=== PATIENT | female | born 1985 | race Hispanic/Latino ===

== ENCOUNTER 2017-12-05 12:33 | Emergency (ER) | payer OTHER ==
[~2017-12-05] VITALS: Ht 162.6 cm; Wt 55.8 kg
--- OUTSIDE RECORDS SUMMARY | ~2017-12-05 | XMS | Clinical Summary ---
Demographics + + + | Address | [address] | [address] | | | [place] [address] | + + + | Home Phone | | + + + | Preferred Language | Unknown | + + + | Marital Status | Unknown | + + + | Religion Affiliation | Unknown | + + + | Race | Unknown | + + + | Ethnic Group | Unknown | + + + Author + + + | Author | Julissa Airtasker | + + + | Organization | [facility] | + + + | Address | Unknown | + + + | Phone | Unavailable | + + + Care Team Providers + +------+ + | Care Small Arms Artillery Repairer Name | Role | Phone | + [...] + + + + | Vaccine: | | | | | Dtap/Tdap/Td (1 - | 3 | | | | Tdap) | | | | + + + + + | Cervical Cancer | | | | | Screening (Pap) | 4 | | | + + + + + | Vaccine: Influenza | | | | | (#1) | 8 | | | + + + + [...] +------+-------+ + | MEDICAID | [place] | [id number] | | | [address] | | | N | | | | [place] | | | [place] | | | | [phone] | | | HAND MOLD MAKER | | | | | + +--------+ [...] Self | [birth year] | Home: | [address] | | | al/Fam | | 1985 | [phone] | [address] [place] | | | [place] | | | [phone] | [phone] | + +--------+ +--------+ + +"
--- OUTSIDE RECORDS SUMMARY | ~2017-12-05 | XMS | Clinical Summary ---
Demographics + + + | Address | [address] | [address] | | | [place] [address] | + + + | Home Phone | | + + + | Preferred Language | Unknown | + + + | Marital Status | Unknown | + + + | Voodoo Affiliation | Unknown | + + + | Race | Unknown | + + + | Ethnic Group | Unknown | + + + Author + + + | Author | Julissa NEXGRID | + + + | Organization | 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
[~2017-12-05 12:33] MED LIST: ASPIRIN81 MG PO; CENTRUM MULTIG80 MCG PO; HYDROCODON-ACE1 EA10 PO; MECLIZINE HCL25 MG PO; ONDANSETRON ODT8 MG PO; REMERON30 MG PO; ULTRAM50 MG PO; ZOFRAN ODT4 MG PO; ZOLOFT100 MG PO
[2017-12-05] MEDS ORDERED: CAMRESE LO TAB1 EACH PO (12:44)
[2017-12-05] MEDS ORDERED: TOPAMAX25 MG PO (12:44)
[2017-12-05] MEDS ORDERED: PREDNISONE20 MG PO (13:04)
[2017-12-05] MEDS ORDERED: VENTOLIN HFA18 GM INH (13:04)
== END 2017-12-05 13:34 | disposition home or self-care (01) ==
LOC: ED 12:33
DX: J45.901 Unspecified asthma with (acute) exacerbation (principal); Z88.0 Allergy status to penicillin; Z88.8 Allergy status to other drugs, medicaments and biological substances
CPT/HCPCS: 94640; 99284; J7512

== ENCOUNTER 2019-01-20 09:37 | Emergency (ER) | payer OTHER ==
[~2019-01-20] VITALS: Ht 162.6 cm; Wt 61.2 kg
--- OUTSIDE RECORDS SUMMARY | ~2019-01-20 | XMS | Clinical Summary ---
Demographics + + + | Address | [address] | | | [place] [address] | + + + | Home Phone | | + + + | Preferred Language | Unknown | + + + | Marital Status | Unknown | + + + | Catholic Affiliation | Unknown | + + + | Race | Unknown | + + + | Ethnic Group | Unknown | + + + Author + + + | Author | [facility] (Historical as of | | | 12-02-18) | + + + | Organization | [facility] (Historical as of | | | 12-02-18) | + + + | Address | Unknown | + + + | Phone | Unavailable | + + + Care Team Providers + +------+ + | Care Research Quality Assurance Analyst Name | Role | Phone | + [...] +------+-------+ + | MEDICAID | [place] | [id number] | | | [address] | | | N | | | | [place] | | | [place] | | | | [phone] | | | 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
--- OUTSIDE RECORDS SUMMARY | ~2019-01-20 | XMS | Clinical Summary ---
Demographics + + + | Address | [address] | [address] | | | [place] [address] | + + + | Home Phone | | + + + | Preferred Language | Unknown | + + + | Marital Status | Unknown | + + + | Amish Affiliation | Unknown | + + + | Race | Unknown | + + + | Ethnic Group | Unknown | + + + Author + + + | Author | [facility] (Historical as of | | | 12-02-18) | + + + | Organization | [facility] (Historical as of | | | 12-02-18) | + + + | Address | Unknown | + + + | Phone | Unavailable | + + + Care Team Providers + +------+ + | Care Architect Naval Name | Role | Phone | + [...] +------+-------+ + | MEDICAID | [place] | [id number] | | | [address] | | | N | | | | [place] | | | [place] | | | | [phone] | | | APPRENTICE ELECTRICIAN | | | | | + +--------+ [...] | [place] | | | [phone] | [phone] | + +--------+ +--------+ + +"
[~2019-01-20 09:37] MED LIST changes: +CAMRESE LO TAB1 EACH PO; +PREDNISONE20 MG PO; +TOPAMAX25 MG PO; +VENTOLIN HFA18 GM INH
[2019-01-20] MEDS ORDERED: GABAPENTIN300 MG PO (09:56)
[2019-01-20] MEDS ORDERED: CYMBALTA60 MG PO (09:57)
[2019-01-20] MEDS ORDERED: ULTRAM50 MG PO (12:40)
[2019-01-20] MEDS ORDERED: PROTONIX40 MG PO (12:40)
== END 2019-01-20 12:49 | disposition home or self-care (01) ==
LOC: ED 09:37
DX: R10.13 Epigastric pain (principal); Z88.0 Allergy status to penicillin; Z88.8 Allergy status to other drugs, medicaments and biological substances; Z79.899 Other long term (current) drug therapy
CPT/HCPCS: 80053; 85025; 96374; 96375; 99284-25; C9113; J1885; J2550

== ENCOUNTER 2019-01-25 12:07 | Emergency (ER) | payer OTHER ==
[~2019-01-25] VITALS: Ht 162.6 cm; Wt 61.2 kg
--- OUTSIDE RECORDS SUMMARY | ~2019-01-25 | XMS | Clinical Summary ---
Demographics + + + | Address | [address] | [address] | | | [place] [address] | + + + | Home Phone | | + + + | Preferred Language | Unknown | + + + | Marital Status | Unknown | + + + | Scientologist Affiliation | Unknown | + + + | Race | Unknown | + + + | Ethnic Group | Unknown | + + + Author + + + | Author | [email or web address] (Historical as of | | | 12-02-18) | + + + | Organization | [email or web address] (Historical as of | | | 12-02-18) | + + + | Address | Unknown | + + + | Phone | Unavailable | + + + Care Team Providers + +------+ + | Care Rod Finisher Name | Role | Phone | + +------+ + PP | Unavailable | + +------+ + Allergies Not on File Current Medications Not on file Active Problems Not on file Social History + +-------+ +--------+------+ | Tobacco Use | Types | Packs/Day | Years | Date | | | | | Used | | + +-------+ +--------+------+ | Never Assessed | | | | | + +-------+ +--------+------+ + + + | Sex Assigned at | Date Recorded | | | | + + + | Not on file | | + + + Plan of Treatment + + + + + | Health Maintenance | Due Date | Last Done | Comments | + + + + + | Vaccine: | 18/200 | | | | Dtap/Tdap/Td (1 - | 3 | | | | Tdap) | | | | + + + + + | Cervical Cancer | | | | | Screening (Pap) | 4 | | | + + + + + | Vaccine: Influenza | | | | | (#1) | 9 | | | + + + + + Results Not on filefrom Last 3 Months Insurance + +--------+ +------+-------+ + | Payer | Benefi | Subscriber | Type | Phone | Address | | | t Plan | ID | | | | | | / | | | | | | | Group | | | | | + +--------+ +------+-------+ + | MEDICAID | [place] | [id number] | | | [address] | | | N | | | | [place] | | | [place] | | | | [phone] | | | FBI INVESTIGATOR | | | | | + +--------+ +------+-------+ + + +--------+ +--------+ + + | Guarantor Name | Accoun | Relation to | Date | Phone | Billing Address | | | t Type | Patient | of | | | | | | | | | | + +--------+ +--------+ + + | GET EUGENE | Person | Self | [birth year] | Home: | [address] | | | al/Fam | | 1986 | [phone] | [address] [place] | | | [place] | | | [phone] | [phone] | + +--------+ +--------+ + +"
--- OUTSIDE RECORDS SUMMARY | ~2019-01-25 | XMS | Clinical Summary ---
Demographics + + + | Address | [address] | [address] | | | [place] [address] | + + + | Home Phone | | + + + | Preferred Language | Unknown | + + + | Marital Status | Unknown | + + + | Oriental Orthodox Affiliation | Unknown | + + + | Race | Unknown | + + + | Ethnic Group | Unknown | + + + Author + + + | Author | [facility] (Historical as of | | | 12-02-18) | + + + | Organization | [facility] (Historical as of | | | 12-02-18) | + + + | Address | Unknown | + + + | Phone | Unavailable | + + + Care Team Providers + +------+ + | Care Hogshead Stripper Name | Role | Phone | + [...] +------+-------+ + | MEDICAID | [place] | [id number] | | | [address] | | | N | | | | [place] | | | [place] | | | | [phone] | | | LEAF COVERER | | | | | + +--------+ [...] | [place] | | | [phone] | [phone] | + +--------+ +--------+ + +"
[~2019-01-25 12:07] MED LIST changes: +CYMBALTA60 MG PO; +GABAPENTIN300 MG PO; +PROTONIX40 MG PO
--- OUTSIDE RECORDS SUMMARY | 2019-01-25 12:10 | XMS ---
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 Sonya VISIT COUNT (12 MO.) 2 [facility] TOTAL 2 NOTE: Visits indicate total known visits. ED/UCC VISIT TRACKING (12 MO.) 01/25/2019 12:08 [facility] [place] TYPE: Emergency COMPLAINT: - ABD PAIN 01/20/2019 09:37 [facility] [place] TYPE: Emergency COMPLAINT: - ABD PAIN DIAGNOSES: - Epigastric pain - Allergy status to other drugs, medicaments and biological substances status - Other exterminator termite (current) drug therapy - Allergy status to penicillin INPATIENT VISIT TRACKING (12 MO.) No inpatient visits to display in this time frame [email or web address]
[2019-01-25] MEDS ORDERED: NORCO 5-325 TA1 EACH PO (18:32)
[2019-01-25] MEDS ORDERED: ONDANSETRON ODT8 MG PO (18:32)
== END 2019-01-25 18:48 | disposition home or self-care (01) ==
LOC: ED 12:07
DX: K29.00 Acute gastritis without bleeding (principal); Z88.0 Allergy status to penicillin; Z88.8 Allergy status to other drugs, medicaments and biological substances; Z79.899 Other long term (current) drug therapy; Z79.891 Long term (current) use of opiate analgesic
CPT/HCPCS: 74177; 80053; 81001; 83690; 83735; 84703; 85025; 99284-25; C9113; J1170; J2405

== ENCOUNTER 2019-03-22 08:26 | Day surgery (SDC) | payer OTHER ==
[~2019-03-22] VITALS: Ht 162.6 cm; Wt 61.2 kg
[~2019-03-22 08:26] MED LIST changes: +NORCO 5-325 TA1 EACH PO
--- NOTE | 2019-03-22 08:55 | NUR ---
C/O ABDOMINAL PAIN AND HAS CHRONIC PAIN
--- NOTE | 2019-03-22 09:38 | NUR ---
03/22/19 0938 Sheets,Alva 0977 PT ARRIVED TO PACU AND WAKES TO VERBAL STIMULI AND IS REORIENTED TO PACU. PT FALLS BACK TO SLEEP EASILY. RESP EVEN AND UNLABORED. VSS.
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
--- NOTE | 2019-03-26 13:01 | PATH ---
[facility] [address] [place], [place] [address] Signed SPECIMEN(S): A STOMACH NOS SPECIMEN(S): B STOMACH NOS SPECIMEN(S): C STOMACH NOS SPECIMEN(S): D GE JUNCTION SPECIMEN SOURCE: A. STOMACH NOS B. STOMACH NOS C. STOMACH NOS D. GE JUNCTION CLINICAL HISTORY: Epigastric pain. Rule out: 1. Demario limb. 2. Small gastric anastomosis. 3. Gastric pouch. MICROSCOPIC DESCRIPTION: Histologic sections of all submitted blocks are examined by light microscopy. These findings, together with the gross examination, support the pathologic diagnosis. FINAL PATHOLOGIC DIAGNOSIS: A. Demario limb, biopsy: - --Small intestinal mucosa with mild active inflammation and reactive changes. - Negative for villous blunting and granulomas. B. Small gastric bowel anastomosis, biopsy: - Fragments of gastric and duodenal mucosa with mild chemical/reactive gastropathy and reactive changes. - Negative for Helicobacter pylori organisms on immunohistochemical stain. C. Gastric pouch, biopsy: - Benign gastric mucosa. - Negative for intestinal metaplasia. - Negative for Helicobacter pylori organisms on routine stain. D. GE junction, biopsy: - Fragments of benign squamous mucosa. - Negative for intestinal metaplasia and dysplasia. DDF:smn:C2NR GROSS DESCRIPTION: Four specimens are received in four containers, labeled "LD." A. The specimen, labeled "LD, #1," is received in formalin and consists of two lester soft tissue fragments that measure 0.3-0.6 cm in greatest dimension. The PATIENT NAME: GET EUGENE PATHOLOGY DATE OF : 81 REPORT #: [id number] PHYSICIAN: RAVI BRAVO PCP: MARK MCNAIR PAC REPORT IS CONFIDENTIAL AND NOT TO BE RELEASED WITHOUT AUTHORIZATION [facility] [address] [place], [place] [address] Signed specimen is entirely submitted in cassette (A1). B. The specimen, labeled "LD, #2 small bowel," is received in formalin and consists of one lester soft tissue fragment that measures 0.4 cm in greatest dimension. The specimen is entirely submitted in cassette (B1). C. The specimen, labeled "LD, #3," is received in formalin and consists of one lester soft tissue fragment that measures 0.4 cm in greatest dimension. The specimen is entirely submitted in cassette (C1). D. The specimen, labeled "LD, #4," is received in formalin and consists of two lester soft tissue fragments that measure 0.2 and 0.8 cm in greatest dimension. The specimen is entirely submitted in cassette (D1). FB (under the direct supervision of a pathologist) The Gross Description was prepared using a voice recognition system. The report was reviewed for accuracy; however, sound-alike word errors, addition and/or deletions may occur. If there is any question about this report, please contact Client Services. PERFORMING LABORATORY: The technical component was performed by [facility], [address] [place] [address] (Facility Maintenance Helper: Sara Kerr MD; CLIA# [id number]). [facility], [address] [place] [address] (CLIA# [id number]). Diagnostician: Shravan Benson DO Pathologist Electronically Signed 03/26/2019 Copies: ~ PATIENT NAME: GET EUGENE DIMITRI PATHOLOGY DATE OF : 81 REPORT #: [id number] PHYSICIAN: RAVI BRAVO PCP: MARK MCNAIR PAC REPORT IS CONFIDENTIAL AND NOT TO BE RELEASED WITHOUT AUTHORIZATION
== END 2019-03-22 10:32 | disposition home or self-care (01) ==
LOC: DS 08:26
PROVIDERS: Colon & Rectal Surgery
PROC: 0DB48ZX Excision of Esophagogastric Junction, Via Natural or Artificial Opening Endoscopic, Diagnostic (ICD-10-PCS; 2019-03-22)
PROC: 0DB88ZX Excision of Small Intestine, Via Natural or Artificial Opening Endoscopic, Diagnostic (ICD-10-PCS; 2019-03-22)
PROC: 0DB68ZX Excision of Stomach, Via Natural or Artificial Opening Endoscopic, Diagnostic (ICD-10-PCS; principal; 2019-03-22 09:45)
DX: K29.70 Gastritis, unspecified, without bleeding (principal); K52.9 Noninfective gastroenteritis and colitis, unspecified; D64.9 Anemia, unspecified; K31.89 Other diseases of stomach and duodenum; F41.9 Anxiety disorder, unspecified; F32.9 Major depressive disorder, single episode, unspecified; M79.7 Fibromyalgia; E55.9 Vitamin D deficiency, unspecified; E78.6 Lipoprotein deficiency; Z98.84 Bariatric surgery status; Z79.899 Other long term (current) drug therapy; Z88.8 Allergy status to other drugs, medicaments and biological substances; Z88.0 Allergy status to penicillin
CPT/HCPCS: 86677; 99153; G0500; J2250; J3010; J7121

== ENCOUNTER 2019-05-17 17:16 | Emergency (ER) | payer OTHER ==
[~2019-05-17] VITALS: Ht 162.6 cm; Wt 61.2 kg
--- OUTSIDE RECORDS SUMMARY | 2019-05-17 17:20 | XMS ---
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 EKelly VISIT COUNT (12 MO.) 3 [facility] [place] TOTAL 3 NOTE: Visits indicate total known visits. ED/UCC VISIT TRACKING (12 MO.) 05/17/2019 17:17 [facility] [place] TYPE: Emergency COMPLAINT: - UPPER ABD PAIN, BACK/NECK PAIN 01/25/2019 12:08 [facility] [place] TYPE: Emergency COMPLAINT: - ABD PAIN DIAGNOSES: - Other nursing home (current) drug therapy - Allergy status to penicillin - Allergy status to oth drug/meds/biol subst status - Upper abdominal pain, unspecified - vermin exterminator (current) use of opiate analgesic - Acute gastritis without bleeding 01/20/2019 09:37 [facility] [place] TYPE: Emergency COMPLAINT: - ABD PAIN DIAGNOSES: - Epigastric pain - Allergy status to oth drug/meds/biol subst status - Other 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
[2019-05-17] MEDS ORDERED: CYANOCOBAL1000 MCG/M IM (18:08)
[2019-05-17] MEDS ORDERED: ASHLYNA 0.15-01 EACH PO (18:08)
[2019-05-17] MEDS ORDERED: IRON325 M1 PO (18:09)
[2019-05-17] MEDS ORDERED: OMEPRAZOLE20 MG PO (23:22)
== END 2019-05-17 23:55 | disposition home or self-care (01) ==
LOC: ED 17:16
DX: R10.11 Right upper quadrant pain (principal); Z88.0 Allergy status to penicillin; Z88.8 Allergy status to other drugs, medicaments and biological substances; Z79.899 Other long term (current) drug therapy
CPT/HCPCS: 74177; 80053; 81001; 83690; 84703; 85025; 96361; 99284-25; C9113; J1170; J2405; J2550; J7030; Q9967

== ENCOUNTER 2019-11-15 18:50 | Emergency (ER) | payer OTHER ==
[~2019-11-15] VITALS: Ht 162.6 cm; Wt 65.8 kg
--- OUTSIDE RECORDS SUMMARY | ~2019-11-15 | XMS | Encounter Summary ---
Demographics + + + | Address | [address] | | | [address] | | | [place] [address] | + + + | Home Phone | | + + + | Preferred Language | Unknown | + + + | Marital Status | Unknown | + + + | Hoahaoism Affiliation | Unknown | + + + | Race | Unknown | + + + | Ethnic Group | Unknown | + + + Author + + + | Author | [facility] | | | and [place] | + + + | Organization | [facility] | | | [...] Team Providers + +------+ + | Care Registered Nurses Name | Role | Phone | + +------+ + | Niocle Shin | PCP | | | PA [...] Lab Results | | 2020 | | [facility] | | | | | | [facility] [address] | | | | | | [address] [place], | | | | | | [place] [address] | | | | | | [phone] | | | +--------+ + + + [...] Description | +--------+---------+ + + + | 11/21/ | Office | Neurology | Radha Arcos | | 2019 | Visit | | MD Randall [address] | | | | | | [place] | | | | | | [place] [address] | | | | | | [phone] | | | | | | | | +--------+---------+ + + + documented as of this encounter Visit Diagnoses Not on filedocumented in this encounter"
--- OUTSIDE RECORDS SUMMARY | ~2019-11-15 | XMS | Clinical Summary ---
Demographics + + + | Address | [address] | | [address] | | | [place] [address] | + + + | Home Phone | | + + + | Preferred Language | Unknown | + + + | Marital Status | Unknown | + + + | Restoration Affiliation | Unknown | + + + | Race | Unknown | + + + | Ethnic Group | Unknown | + + + Author + + + | Author | [facility] | | | and [place] | + + + | Organization | [facility] | | | [...] Team Providers + +------+ + | Care Medical Device Sales Representative Name | Role | Phone | + +------+ + | Nicole Shin | PCP | | | PA | | | + +------+ + Allergies + + + + + + | Active Allergy | Reactions | Severity | Noted | Comments | | | | | Date | | + + + + + + | Venlafaxine | Anaphylaxis | High | 05/11/19 | | | | | | 20 | | + + + + + + | Penicillins | Anaphylaxis | High | 05/11/19 | | | | | | 20 | | + + + + + + Medications + + + +---------+------+------+-------+ | Medication | Sig | Dispensed | Refills | Star | End | Statu | | | | | | t | Date | s | | | | | | Date | | | + + + +---------+------+------+-------+ | DULoxetine | Take 60 mg by mouth | | 0 | | | Activ | | (CYMBALTA) [address] | Daily. | | | | | e | | capsule | | | | | | | + + + +---------+------+------+-------+ | cholecalciferol | Take by mouth Once | | 0 | | | Activ | | (VITAMIN D-3) 1.25 | a week. | | | | | e | | mg (50,000 units) | | | | | | | | capsule | | | | | | | + + + +---------+------+------+-------+ | meclizine | Take 12.5 mg by | | 0 | | | Activ | | (ANTIVERT) 12.5 mg | mouth 3 times daily | | | | | e | | tablet | as needed. | | | | | | + + + +---------+------+------+-------+ | ondansetron | Take 8 mg by mouth | | 0 | | | Activ | | (ZOFRAN ODT) 8 mg | every 8 hours as | | | | | e | | disintegrating | needed for Nausea. | | | | | | | tablet | | | | | | | + + + +---------+------+------+-------+ | pantoprazole | Take 40 mg by mouth | | 0 | | | Activ | | (PROTONIX) 40 mg | every morning | | | | | e | | tablet | (before breakfast). | | | | | | + + + +---------+------+------+-------+ | sucralfate | Take 1 g by mouth 4 | | 0 | | | Activ | | (CARAFATE) 1 g | times daily. | | | | | e | | tablet | | | | | | | + + + +---------+------+------+-------+ | topiramate | Take 100 mg by mouth | | 0 | | | Activ | | (TOPAMAX) 100 mg | 2 times daily. | | | | | e | | tablet | | | | | | | + + + +---------+------+------+-------+ | Levonorgest-Eth | Take by mouth | | 0 | | | Activ | | Estrad 91-Day | Daily. | | | | | e | | (MICHAEL PO) | | | | | | | + + + +---------+------+------+-------+ | pregabalin | TAKE 1 CAPSULE BY | | 0 | 05/0 | | Activ | | (LYRICA) 150 MG | MOUTH TWICE DAILY | | | 1/20 | | e | | capsule | | | | 20 | | | + + + +---------+------+------+-------+ | PARoxetine (PAXIL) | TAKE 1 TABLET BY | | 0 | 05/0 | | Activ | | 10 mg tablet | MOUTH ONCE DAILY | | | 1/20 | | e | | | | | | 20 | | | + + + +---------+------+------+-------+ | mirtazapine | TAKE 1 TABLET BY | | 0 | 05/0 | | Activ | | (REMERON) 15 MG | MOUTH EVERY DAY AT | | | 1/20 | | e | | tablet | BEDTIME NEEDED | | | 20 | | | | | FOR SLEEP | | | | | | + + + +---------+------+------+-------+ Active Problems + + + | Problem | Noted Date | + + + | Peripheral polyneuropathy | 09/07/2019 | + + + | Muscle weakness | 05/11/2019 | + + + | Fibromyalgia | 05/11/2019 | + + + Encounters +--------+ + + + + | Date | Type | Specialty | Care Team | Description | +--------+ + + + + | 09/13/ | Telephone | Neurology | Niki Souza RN | Lab Results | 2019 | | | | | +--------+ + + + + | 09/10/ | Telephone | Neurology | Radha Arcos | Lab Results | 2019 | | | MD [place] | | +--------+ + + + + | 09/06/ | Procedure | Neurology | Radha Arcos | Muscle weakness; | | 2019 | visit | | MD [place] | Peripheral | | | | | | polyneuropathy | +--------+ + + + + from Last 3 Months Family History + + +------+ + | Medical History | Relation | Name | Comments | + + +------+ + | Cancer | Paternal | | | | | Aunt | | | + + +------+ + + +------+--------+ + | Relation | Name | Status | Comments | + +------+--------+ + | Father | | Alive | | + +------+--------+ + | Mother | | Alive | | + +------+--------+ + | Paternal Aunt | | | | + +------+--------+ + Social History + +-------+ +--------+------+ | [...] on file | | + + + Last Filed Vital Signs + + + [...] | | + + + + + Plan of Treatment +--------+---------+ + + + | Date | Type | Specialty | Care Team | Description | +--------+---------+ + + + | 11/21/ | Office | Neurology | Radha Arcos | | | 2020 | Visit | | MD [place] [address] | | | | | | [place] | | | | | | [place] [address] | | | | | | [phone] | | | | | | | | +--------+---------+ + + + + + + + + | Health Maintenance | Due Date | Last | Comments | | | | Done | | + + + + + | Hepatitis C | | | | | Screening | 4 | | | + + + + + | Med Mgmt: Cr | | | | | | 4 | | | + + + + + | Med Mgmt: Vit D | | | | | | 4 | | | + + + + + | Med Mgmt: eGFR | | | | | | 4 | | | + + + + + | Medication | | | | | Management | 4 | | | + + + + + | Cervical Cancer | | | | | Screening (Pap) | 4 | | | + + + + + | Vaccine: Influenza | | | | | (#1) | 0 | | | + + + + + | Vaccine: | | 09/16/19 | | | Dtap/Tdap/Td (2 - | 7 | 17 | | | Td) | | | | + + + + + Procedures + +--------+ + + + | Procedure Name | Priori | Date/Time | Associated Diagnosis | Comments | | | ty | | | | + +--------+ + + + | PROTEIN | Routin | 09/07/2019 | Peripheral | Results for this | | ELECTROPHORESIS, | e | 2:45 PM | polyneuropathy | procedure are in the | | SERUM | | PDT | | results section. | + +--------+ + + + | IMMUNOGLOBULIN, | Routin | 09/07/2019 | Peripheral | Results for this | | PANEL, IGG AND IGM | e | 2:45 PM | polyneuropathy | procedure are in the | | AND IGA | | PDT | | results section. | + +--------+ + + + | VITAMIN B-12 | Routin | 09/07/2019 | Peripheral | Results for this | | | e | 2:45 PM | polyneuropathy | procedure are in the | | | | PDT | | results section. | + +--------+ + + + | FOLATE | Routin | 09/07/2019 | Peripheral | Results for this | | | e | 2:45 PM | polyneuropathy | procedure are in the | | [...] section. | + +--------+ + + + from Last 3 Months Results Vitamin B-12 (09/07/2019 2:45 PM PDT) + +-------+ + [...] + + | [facility] | [address] | [place] | [phone] | | HOSPITAL [facility]ORY | | [address] | | + + + + + [...] | | | | | | - [facility] | | | | | | [place] | | + + + + + + | Immunoglobu | 1060 | 600 - 1640 | REFERENCE | | | beatrice IgG | | mg/dL | [facility] | | | | | | [facility] | | | | | | - [place] | | | | | | [place] | | + + + + + + | Immunoglobu | 167Comment: @ Test | 50 - 300 mg/dL | REFERENCE | | | beatrice IgM | Performed By: [facility] | | [facility] | | | | [facility] | | [place] | | | | Marlo Catherine | | - [place] | | | | Salvatore Ruiz, Ph.D., | | [place] | | | | Business Project Analyst | | | | | | [address] [facility] | | | | | | [place] [address] | | | | | | [place] #[id number] | | | | + + + + + + + + | Specimen | + + | Blood | + + + + + + + | Performing | Address | City/State/Zipcode | Phone Number | | Organization | | | | + + + + + | REFERENCE LAB | [address] | [place], [place] | | | [facility] - | | [address] | | | [place] | | | | + + + + + Protein Electrophoresis, Serum (09/07/2019 2:45 PM PDT) [...] | | | | | | - [place] | | | | | | [place] | | + + + + + + | ELP Albumin | 3.9Comment: | 3.8 - 4.8 g/dL | REFERENCE | | | | | | [facility] | | | | | | [facility] | | | | | | - [place] | | | | | | [place] | | + + + + + + | Alpha-1-Tamy | 0.3Comment: | 0.2 - 0.3 g/dL | REFERENCE | | | bulin | | | [facility] | | | | | | [facility] | | | | | | - [place] | | | | | | [place] | | + + + + + + | Alpha-2-Tamy | 0.9Comment: | 0.5 - 0.9 g/dL | REFERENCE | | | bulin | | | [facility] | | | | | | [facility] | | | | | | - [place] | | | | | | [place] | | + + + + + + | Beta 1 | 0.5Comment: | 0.4 - 0.6 g/dL | REFERENCE | | | Globulin | | | [facility] | | | | | | [facility] | | | | | | - [place] | | | | | | [place] | | + + + + + + | BETA 2 | 0.4Comment: | 0.2 - 0.5 g/dL | REFERENCE | | | GLOBULIN | | | [facility] | | | | | | [facility] | | | | | | - [place] | | | | | | [place] | | + + + + + + | Gamma | 1.0Comment: | 0.8 - 1.7 g/dL | REFERENCE | | | Globulin | | | [facility] | | | | | | [facility] | | | | | | - [place] | | | | | | [place] | | + + + + + + | SPEP | Normal Electrophoretic | | REFERENCE | | | Interpretat | Pattern.Comment: | | [facility] | | | ion | Test(s) performed at: | | DIAGNOSTICS | | | | [facility] | | - [place] | | | | [facility] | | [facility] | | | | Becky Redding, | | | | | | MKelly, Ph.D., [place], | | | | | | Business Project Analyst | | | | | | [address] [facility] | | | | | | [place] | | | | | | [place] [address] | | | | | | [place] #[id number] | | | | + + + + + + + + | Specimen | + + | Blood | + + + + + + + | Performing | Address | City/State/Zipcode | Phone Number | | Organization | | | | + + + + + | REFERENCE LAB | [address] | [place], [place] | | | [facility] - | | [address] | | | [place] [place] | | | | + + [...] + + | [facility] | [address] | [place] | [phone] | | HOSPITAL [facility]ORY | | [address] | | + + + + + EMG-LIANET/IRENA (09/07/2019 2:00 PM PDT) + + + | Narrative | Performed At | + + + | Radha Pereira | | | MD Josselyn 09/07/2019 2:28 PMPlease see scanned report. | | | | | + + + + + | Procedure Note | + + | Radha Arcos MD - 09/07/2019 2:00 PM PDT Please see scanned report. | + + from Last 3 Months Insurance + +--------+ +--------+ +---------+--------+ | Payer | Benefi | Subscriber | Effect | Phone | Address | Type | | | t Plan | ID | beverley | | | | | | / | | Dates | | | | | | Group | | | | | | + +--------+ +--------+ +---------+--------+ | [employer] | [place] | [id number] | 04/18/19 | [phone] | | PPO | | ADMIN | BCBS | 2 | 19-Pre | 3 | | | | | PPO | | sent | | | | + +--------+ +--------+ +---------+--------+ | [employer] | [place] | [id number] | 04/18/19 | [phone] | | PPO | | ADMIN | BCBS | 2 | 19-Pre | 3 | | | | | PPO | | sent | | | | + +--------+ +--------+ +---------+--------+ | [employer] | MODA | [id number] | | [phone] | | Medica | | MEDICAID HMO | HEALTH | | 019-Pr | 1 | | id | | | MDCD | | esent | | | | | | [place] | | | | | | + +--------+ +--------+ +---------+--------+ | [employer] | MODA | [id number] | | [phone] | | Medica | | MEDICAID HMO | HEALTH | | 020-Pr | 1 | | id | | | MDCD | | esent | | | | | | [place] | | | | | | + +--------+ +--------+ +---------+--------+ + +--------+ +--------+ + + | Guarantor Name | Accoun | Relation to | Date | Phone | Billing Address | | | t Type | Patient | of | | | | | | | | | | + +--------+ +--------+ + + | Annie Remy | Person | Self [birth year] | [address] | | | [address]/Asad | | 1986 | [phone] | [address] [place] | | | [place] | | | 4 (Home) | [address] | + +--------+ +--------+ + + | Annie Remy | Person | Self | [birth year] | [address] | | | al/Fam | | 1986 | [phone] | [address] [place] | | | [place] | | | 4 (Home) | [address] | + +--------+ +--------+ + + Advance Directives + + + + + | Type | Date Recorded | Patient | Explanation | | | | Material Liaison | | + + + + + | Power of | | | | | Legal Recovery Specialist | | | | + + + + + | Advance | | | | | Directive | | | | + + + + +
--- OUTSIDE RECORDS SUMMARY | ~2019-11-15 | XMS | Encounter Summary ---
Demographics + + + | Address | [address] | | [address] | | | [place] [address] | + + + | Home Phone | | + + + | Preferred Language | Unknown | + + + | Marital Status | Unknown | + + + | Synagogue Affiliation | Unknown | + + + | Race | Unknown | + + + | Ethnic Group | Unknown | + + + Author + + + | Author | [facility] | | | and [place] | + + + | Organization | [facility] | | [...] Team Providers + +------+ + | Care Molding Process Technician Name | Role | Phone | + +------+ + | Nicole Shin | PCP | | | PA | | | + +------+ + Reason for Visit + +--------+ + | Reason | Onset | Comments | | | Date | | + +--------+ + | Lab Results | 09/10/ | | | | 2019 | | + +--------+ + Encounter Details +--------+ + + + + | Date | Type | Department | Care Team | Description | +--------+ + + + + | 09/10/ | Telephone | [place] [facility] | Radha Arcos | Lab Results | | 2020 | | [facility] | MD Randall [address] | | | | | CLINIC [address] | [place] | | | | | [address], | [place] [address] | | | | | [place] [address] | [phone] | | | | | [phone] | | | +--------+ + + + [...] Telephone Encounter - Niki Souza RN - 09/11/2019 8:06 AM PDTNotified, verbalized unde rstanding. Order for Cryoglobulin faxed to [facility] in [place]. elephone Encounter - Niki Souza RN - 0 09/11/2019 8:06 AM PDT----- Message from Radha Arcos MD sent at 09/09/2019 9:10 AM P DT ----- Please lt pt know her B12 and Folate are normal. Other labs are pending.Electronically sig bert by Niki Souza RN at 09/11/2019 8:06 AM PDTTelephone Encounter - Vi Cedeno - 09/11/2019 7:47 AM PDTPatient would like her lab orders faxed to [facility] in [place]. documented in this enco unter Plan of Treatment +--------+---------+ + + + | Date | Type | Specialty | Care Team | Description | +--------+---------+ + + + | 11/21/ | Office | Neurology | Radha Arcos | | 2019 | Visit | | MD Randall [address] | | | | | | [address], [place] | | | | | | [place] [address] | | | | | | [phone] | | | | | | | | +--------+---------+ + + + documented as of this encounter Visit Diagnoses Not on filedocumented in this encounter"
--- OUTSIDE RECORDS SUMMARY | ~2019-11-15 | XMS | Encounter Summary ---
Demographics + + + | Address | [address] | | [address] | | | [place] [address] | + + + | Home Phone | | + + + | Preferred Language | Unknown | + + + | Marital Status | Unknown | + + + | Advent Affiliation | Unknown | + + + | Race | Unknown | + + + | Ethnic Group | Unknown | + + + Author + + + | Author | [facility] | | | and [place] | + + + | Organization | [facility] | | [...] Team Providers + +------+ + | Care Advanced Manufacturing Technician Name | Role | Phone | + +------+ + | Nicole Shin | PCP | | | PA | | | + +------+ + Reason for Visit + +--------+ + | Reason | Onset | Comments | | | Date | | + +--------+ + | Lab Results | 09/13/ | | | | 2019 | | + +--------+ + Encounter Details +--------+ + + + + | Date | Type | Department | Care Team | Description | +--------+ + + + + | 09/13/ | Telephone | [facility] | Niki Souza RN | Lab Results | | 2020 | | [facility] | | | | | | CLINIC [address] | | | | | | [address] [place], | | | | | | [place] [address] | | | | | | [phone] | | | +--------+ + + + [...] Telephone Encounter - Niki Souza RN - 09/14/2019 8:54 AM PDTPatient notified, ju[facility] elep thom Encounter - Niki Souza RN - 09/14/2019 8:54 AM PDT----- Message from Radha Arcos MD sent at 09/14/2019 6:39 AM PDT ----- Please let patient know that the rest of her labs are normal. documented in this encounter Plan of [...] | | | | | [place] [address] | | | | | | [phone] | | | | | | | | +--------+---------+ + + + documented as of this encounter Visit Diagnoses Not on filedocumented in this encounter"
--- OUTSIDE RECORDS SUMMARY | ~2019-11-15 | XMS | Encounter Summary ---
Demographics + + + | Address | [address] | | [address] | | | [place] [address] | + + + | Home Phone | | + + + | Preferred Language | Unknown | + + + | Marital Status | Unknown | + + + | Orthodox Affiliation | Unknown | + + + | Race | Unknown | + + + | Ethnic Group | Unknown | + + + Author + + + | Author | [facility] | | | and [place] | + + + | Organization | [facility] | | [...] Team Providers + +------+ + | Care Shearing Shed Worker Name | Role | Phone | + [...] [address] | | | | | | [address] | [place], | | | | | | [address] | [place] | | | | | | [place], | [facility] [place] | | | | | | [place] | [address] Phone: | | | | | | [address] | [phone] | | | | | | Phone: | Fax: | | | | | | [phone] | [phone] | | | | | | Fax: | | | | | | | [phone] | | +--------+--------+ + + + + [...] | DR [address], | [place] [address] | | | | | [place] [address] | [phone] | | | | | [phone] | | | +--------+---------+ + + + [...] have the followin g tests/procedures ordered. At [facility] Electromyography (EMG) study with Dr. Arcos Blood work at [facility] *Any questions, please call Dr. Arcos's office at Patient advised of their right to have diagnostic testing, health care treatment, and/or se rvices at a facility other than [facility]. Managing Fibromyalgia SMALL: BIG: Fibromyalgia is a [...] Arthritis Foundation [email or web address].org National Fibromyalgia Association www.fmaware.org [place] Fibromyalgia Syndrome Association [email or web address].org Date Last Reviewed: 09/16/201719996519-[address] [employer] [place] [address]. All righ ts reserved. This information is not intended as a substitute for professional medical care. Always follow your healthcare professional's instructions. documented in this encounter Progress Notes Radha Arcos MD - 05/11/2019 11:00 AM PST Patient: Annie Rem[place] Medical Record: [id number] Date of Services: 05/11/2019 Referring Doctor: ALVINA [...] file Gets together: Not on file Attends mosque service: Not on file Active member of [...] CEREBELLAR EXAMINATION: There is no dysmetria on ladoqp-ck-msxi test. IMPRESSION: 1. Elevated muscle enzymes 2. [...] this 45 minute visit was spent on hlor-ci-waiw with the patient, reviewing the possible etiology [...] | | | | | [place] [address] | | | | | | [phone] | | | | | | | [...] + + | [facility] | [address] | [place] | [phone] | | HOSPITAL LAB[facility]ORY | | [address] | | + + + + + [...] + + | [facility] | [address] | [place] | [phone] | | HOSPITAL LAB[facility]ATORY | | [address] | | + + + + + [...] | | Salvatore Ruiz, Ph.D., | | [place] | | | | Fur Trimming Machine Operator | | | | | | [address] [facility] | | | | | | [place] [address] | | | | | | [place] #[id number] | | | | + + + + + + + + | Specimen | + + | Blood | + + + + + + + | Performing | Address | City/State/Zipcode | Phone Number | | Organization | | | | + + + + + | REFERENCE LAB | [address] [facility] | [place], [place] | | | [facility] - | | [address] | | | [place] | | [...] + + | [facility] | [address] | [place], [place] | [phone] | | HOSPITAL LAB[facility]ORY | | [address] | | + + + + + [...] + + | [facility] | [address] | [place] | [phone] | | HOSPITAL LAB[facility]ORY | | [address] | | + + + + + documented in this encounter Visit Diagnoses + + | Diagnosis | + + | Muscle weakness Muscle weakness (generalized) | + + | Fibromyalgia Mylagia and myositis, unspecified | + + documented in this encounter
--- OUTSIDE RECORDS SUMMARY | ~2019-11-15 | XMS | Encounter Summary ---
Demographics + + + | Address | [address] | | | [address] | | | [place] [address] | + + + | Home Phone | | + + + | Preferred Language | Unknown | + + + | Marital Status | Unknown | + + + | Yazidi Affiliation | Unknown | + + + [...] | + + +---------+ + | [place] | ECON | Unknown | | + + +---------+ + Care Team Providers + +------+ + | Care Ultrasonic Cleaner Name | Role | Phone | + [...] | [address], | [place] [address] | | | | | [place] [address] | [phone] | | | | | [phone] | | | +--------+ + + + [...] | | | | | [place] [address] | | | | | | [phone] | | | | | | | [...] [place], | | | | | | Financial Wellness Coach | | | | | | [address] [facility] | | | | | | [address] [address] | | | | | | [place] [address] | | | | | | [place] #[id number] | | | | + + + + + + + + | Specimen | + + | Blood | + + + + + + + | Performing | Address | City/State/Zipcode | Phone Number | | Organization | | | | + + + + + | REFERENCE LAB | [address] [facility] | [place], [place] | | | [facility] - | | [address] | | | [facility] | | [...] | | [place] | | | | Financial Wellness Coach | | | | | | [address] [facility] [facility] | | | | | | [place] [address] | | | | | | [place] #[id number] | | | | + + + + + + + + | Specimen | + + | Blood | + + + + + + + | Performing | Address | City/State/Zipcode | Phone Number | | Organization | | | | + + + + + | REFERENCE LAB | [address] [facility] | [place], [place] | | | [facility] - | | [address] | | | [facility] [place] | | [...] + + | [facility] | [address] | [place] | [phone] | | HOSPITAL LAB[facility]ATORY | | [address] | | + + + + + [...] + + | [facility] | [address] | [place] | [phone] | | HOSPITAL LAB[facility]ORY | | [address] | | + + + + + [...]
--- OUTSIDE RECORDS SUMMARY | ~2019-11-15 | XMS | Encounter Summary ---
Demographics + + + | Address | [address] | | [address] | | | [place] [address] | + + + | Home Phone | | + + + | Preferred Language | Unknown | + + + | Marital Status | Unknown | + + + | Jehovah'S Witness Affiliation | Unknown | + + + [...] Team Providers + +------+ + | Care Generator Worker Name | Role | Phone | [...] | [address], | [place] [address] | | | | | [place] [address] | [phone] | | | | | [phone] | | | +--------+ + + + [...] 07/12/2019 2:08 PM PDTRecieved fax request from: [facility] Request[facility] chart notes on pt. I faxed the notes from the consult in April. Pt was referred by them I will send the request to the medical records dept in [facility] for further notes documented in thi s [...] | | | | | [place] [address] | | | | | | [phone] | | | | | | | | +--------+---------+ + + + documented as of this encounter Visit Diagnoses Not on filedocumented in this encounter"
--- OUTSIDE RECORDS SUMMARY | ~2019-11-15 | XMS | Encounter Summary ---
Demographics + + + | Address | [address] | | | [address] | | | [place] [address] | + + + | Home Phone [...] Team Providers + +------+ + | Care Haul Truck Driver Name | Role | Phone | + [...] Lab Results | | 2020 | | [facility] | | | | | | CLINIC [address] | | | | | | [address] [place], | | | | | | [place] [address] | | | | | | [phone] | | | +--------+ + + + [...] | | | | | [place] [address] | | | | | | [phone] | | | | | | | | +--------+---------+ + + + documented as of this encounter Visit Diagnoses Not on filedocumented in this encounter"
[~2019-11-15 18:50] MED LIST changes: +ASHLYNA 0.15-01 EACH PO; +CYANOCOBAL1000 MCG/M IM; +IRON325 M1 PO; +OMEPRAZOLE20 MG PO
--- OUTSIDE RECORDS SUMMARY | 2019-11-15 18:54 | XMS ---
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 EKelly VISIT COUNT (12 MO.) 4 [facility] [place] TOTAL 4 NOTE: Visits indicate total known visits. ED/UCC VISIT TRACKING (12 MO.) 11/15/2019 18:51 [facility] [place] TYPE: Emergency COMPLAINT: - HEADACHE,SCRATCHY THROAT,BODY ACHES 05/17/2019 17:17 [facility] [place] TYPE: Emergency COMPLAINT: - UPPER ABD PAIN, BACK/NECK PAIN DIAGNOSES: - Unspecified abdominal pain - Allergy status to penicillin - Allergy status to other drugs, medicaments and biological sub - Right upper quadrant pain - Other [facility] (current) drug therapy 01/25/2019 12:08 [facility] [place] TYPE: Emergency COMPLAINT: - ABD PAIN DIAGNOSES: - Other salvage determiner (current) drug therapy - Allergy status to penicillin - Allergy status to other drugs, medicaments and biological sub - Upper abdominal pain, unspecified - [facility] (current) use of opiate analgesic - Acute gastritis without bleeding 01/20/2019 09:37 [facility] [place] TYPE: Emergency COMPLAINT: - ABD PAIN DIAGNOSES: - Epigastric pain - Allergy status to other drugs, medicaments and biological sub - Other salvage determiner (current) drug therapy - Allergy status to penicillin INPATIENT VISIT TRACKING (12 MO.) No inpatient visits to display in this time frame [email or web address]
[2019-11-15] MEDS ORDERED: PAROXETINE HCL20 MG PO (21:52)
[2019-11-15] MEDS ORDERED: VITAMIN D31250 MC1 PO (21:53)
[2019-11-15] MEDS ORDERED: MIRTAZAPINE15 MG PO (21:54)
[2019-11-15] MEDS ORDERED: PREGABALIN150 MG PO (21:54)
[2019-11-15] MEDS ORDERED: NEXPLANON68 MG SUB-Q (21:55)
[2019-11-16] MEDS ORDERED: EPIPEN 2-P0.3 MG/0.3 IM (00:02)
== END 2019-11-16 00:10 | disposition home or self-care (01) ==
LOC: ED 18:50
DX: T63.441A Toxic effect of venom of bees, accidental (unintentional), initial encounter (principal); E87.6 Hypokalemia; Z88.0 Allergy status to penicillin; Z79.899 Other long term (current) drug therapy
CPT/HCPCS: 80053; 83735; 85025; 99283; J1100; Q0163

== ENCOUNTER 2019-11-30 11:29 | Emergency (ER) | payer OTHER ==
[~2019-11-30] VITALS: Ht 162.6 cm; Wt 66.7 kg
--- OUTSIDE RECORDS SUMMARY | ~2019-11-30 | XMS | Encounter Summary ---
Demographics + + + | Address | [address] | [address] | | | [place] [address] | + + + | Home Phone | | + + + | Preferred Language | Unknown | + + + | Marital Status | Unknown | + + + | Hinduism Affiliation | Unknown | + + + | Race | Unknown | + + + | Ethnic Group | Unknown | + + + Author + + + | Author | [facility] | | | and [place] | + + + | Organization | [facility] | | | and [place] | + + + | Address | Unknown | + + + | Phone | Unavailable | + + + Support + + +---------+ + | Name | Relationship | Address | Phone | + + +---------+ + | Verónica Singleton | ECON | Unknown | | + + +---------+ + | Shaun Singleton | ECON | Unknown | | + + +---------+ + Care Team Providers + +------+ + | Care Differential Specialist Name | Role | Phone | + +------+ + | Nicole Shin | PCP | | | PA | | | + +------+ + Reason for Visit + + + | Reason | Comments | + + + | Establish Care | | + + + Evaluate & Treat (Routine) +--------+--------+ + + + + | Status | Reason | Specialty | Diagnoses / | Referred By | Referred To | | | | | Procedures | Contact | Contact | +--------+--------+ + + + + | Closed | | Neurology | Diagnoses | Kip, | Joss[place], | | | | | | Nicole | Radha Pereira, | | | | | Fibromyalgia | ALVINA Berman | [address] | | | | | [address] | [employer], | | | | | | [address] | [place] | | | | | | [place], | [facility] [place], [place] | | | | | | [place] | [address] Phone: | | | | | | [address] | [phone] | | | | | | Phone: | Fax: | | | | | | [phone] | [phone] | | | | | | Fax: | | | | | | | [phone] | | +--------+--------+ + + + + Encounter Details +--------+---------+ + + + | Date | Type | Department | Care Team | Description | +--------+---------+ + + + | 05/11/ | Office | [facility] | Radha Arcos | Muscle weakness; | | 2019 | Visit | [facility] | MD [facility] [address] | Fibromyalgia | | | | CLINIC [address] | [place] | | | | | [address] [place], | [place] [address] | | | | | [place] [address] | [phone] | | | | | [phone] | | | +--------+---------+ + + + Social History + +-------+ +--------+------+ | Tobacco Use | Types | Packs/Day | Years | Date | | | | | Used | | + +-------+ +--------+------+ | Never Smoker | | | | | + +-------+ +--------+------+ + +---+---+---+ | Smokeless Tobacco: | | | | | Never Used | | | | + +---+---+---+ + + +---------+ + | Alcohol Use | Drinks/Week | oz/Week | Comments | + + +---------+ + | Not Asked | 1 Standard drinks | 1.0 | occasional | | | or equivalent | | | + + +---------+ + + + + | Sex Assigned at | Date Recorded | | | | + + + | Not on file | | + + + documented as of this encounter Last Filed Vital Signs + + + + + | Vital Sign | Reading | Time Taken | Comments | + + + + + | Blood Pressure | 127/78 | 05/11/2019 11:04 AM | | | | | PST | | + + + + + | Pulse | 89 | 05/11/2019 11:04 AM | | | | | PST | | + + + + + | Temperature | - | - | | + + + + + | Respiratory Rate | 16 | 05/11/2019 11:04 AM | | | | | PST | | + + + + + | Oxygen Saturation | 99% | 05/11/2019 11:04 AM | | | | | PST | | + + + + + | Inhaled Oxygen | - | - | | | Concentration | | | | + + + + + | Weight | 66.4 kg (146 lb 4.8 | 05/11/2019 11:04 AM | | | | oz) | PST | | + + + + + | Height | 162.6 cm (5' 4") | 05/11/2019 11:04 AM | | | | | PST | | + + + + + | Body Mass Index | 25.11 | 05/11/2019 11:04 AM | | | | | PST | | + + + + + documented in this encounter Patient Instructions Patient Instructions Radha Arcos MD - 05/11/2019 11:00 AM PSTYou have the followin g tests/procedures ordered. At [facility] Electromyography (EMG) study with Dr. Arcos Blood work at [facility] *Any questions, please call Dr. Arcos's office at Patient advised of their right to have diagnostic testing, health care treatment, and/or se rvices at a facility other than [facility]. Managing Fibromyalgia SMALL: BIG: Fibromyalgia is a chronic illness that causes pain in specific points on the abhilash dy, stiffness, and constant tiredness (fatigue). But it doesn t have to keep you from doin g what you enjoy. You can feel better. You and your healthcare provider can work together to develop a plan. Take medicines as directed You may be given medicinesto help reduce pain and improve sleep. Several medications are approved to treat fibromyalgia. Two were originally designed to isis at depression. They are duloxetine, andmilnacipran.A third, called pregaballin, was mellissa chapin to treat nerve pain. Other medicinesinclude pain relievers such as acetaminophen or stronger opioids. These may be prescribed short term. Nonsteroidal anti-inflammatory drugs(NSAIDs)are used to relieve pain. Theseinclude ib uprofen and naproxen. Get exercise Gentle exercise can help lessen your pain. Try these tips: Choose activities that are gentle on your joints, such as walking, biking, and swimming or other water exercises. Don t push yourself too hard. Build up your strength and endurance slowly, over time. Stick to it. For the most relief, exercise should become part of your daily life. Get a good night s rest To help you get more sleep, try the tips below: Sleep only in a bed, not on a couch or chair. Don t watch TV, read, or work in bed. Go to bed and get up at the same time each day. Try not to take naps. Don t usealcohol, caffeine, or tobacco for at least 3 hours before going to bed. Don t drinkfluids in the evening to avoid having to get up to urinate. Other things you can do No one knows what causes fibromyalgia. But stress, poor eating habits, and extra weight can make it worse. These tips may help you feel better: Eat a balanced diet with plenty of fruits and vegetables, whole grains, lean protein, an d low-fat or nonfat dairy products. Maintain a healthy weight. Learn ways to reduce or manage the stress in your life. Ask your healthcare provider for resources to help you make changes. Or check out the re sources below. Resources Arthritis Foundation www.arthritis.org National Fibromyalgia Association www.fmaware.org [place] Fibromyalgia [employer] Association www.afsafund.org Date Last Reviewed: 09/16/201719999128-3998 [employer] [place] [address]. All righ ts reserved. This information is not intended as a substitute for professional medical care. Always follow your healthcare professional's instructions. documented in this encounter Progress Notes Radha Arcos MD - 05/11/2019 11:00 AM PST Patient: Annie Remy Medical Record: [id number] Date of Services: 05/11/2019 Referring Doctor: ALVINA Mckee Chief Complaint Patient presents with Establish Care HISTORY OF PRESENT ILLNESS: The patient is a 33-year-old female who is referred to me because her history of elevated C PK and myoglobin as well as fibromyalgia. The referral came from Dr. Campoverde, her rheumatol ogist. Her symptoms started 17 years ago. She started to notice pain that started in her neck and went all the way down to her lower back, arms, and knees. 3 years ago, her pain worsened. She also noted difficulty walking for prolonged distances. She would feel that her legs we re about to give out and had to rest. In addition, lifting her arms above her head was pain ful. She has no history of rash. She was diagnosed with fibromyalgia several years ago. She saw Dr. Campoverde in December of last year. Dr. Campoverde recommended an EMG and a possib le muscle biopsy. The patient has no family history of neuromuscular disease. She has not noted any change i n the color of her urine. At the moment, she is on Cymbalta and Lyrica for her pain. REVIEW OF SYSTEMS: General: Positive for weight gain HEENT: Positive for tinnitus Cardiovascular: No chest pain Respiratory: No shortness of breath Gastrointestinal: Positive for nausea Musculoskeletal: Positive for joint pains and neck pain Skin: Positive for dryness Hematologic: No bruising Neurologic: Positive for headaches Psychiatric: Positive for depression Genitourinary: No nocturia Past Medical History: Diagnosis Date Depression Fibromyalgia Migraine PTSD (post-traumatic stress disorder) Past Surgical History: Procedure Laterality Date APPENDECTOMY CHOLECYSTECTOMY GASTRIC BYPASS SURGERY Current Outpatient Medications Medication Sig Dispense Refill cholecalciferol (VITAMIN D-3) 1.25 mg (50,000 units) capsule Take by mouth Once a week . DULoxetine (CYMBALTA) [address] capsule Take 60 mg by mouth Daily. Levonorgest-Eth Estrad 91-Day (ASHLYNA PO) Take by mouth Daily. meclizine (ANTIVERT) 12.5 mg tablet Take 12.5 mg by mouth 3 times daily as needed. ondansetron (ZOFRAN ODT) 8 mg disintegrating tablet Take 8 mg by mouth every 8 hours as needed for Nausea. pantoprazole (PROTONIX) 40 mg tablet Take 40 mg by mouth every morning (before breakfas t). pregabalin (LYRICA) 75 mg capsule Take 75 mg by mouth 2 times daily. sucralfate (CARAFATE) 1 g tablet Take 1 g by mouth 4 times daily. topiramate (TOPAMAX) 100 mg tablet Take 100 mg by mouth 2 times daily. No current facility-administered medications for this visit. Allergies Allergen Reactions Effexor [Venlafaxine] Anaphylaxis Penicillins Anaphylaxis Social History Socioeconomic History Marital status: Not on file Spouse name: Not on file Number of children: Not on file Years of education: Not on file Highest education level: Not on file Occupational History Not on file Social Needs Financial resource strain: Not on file Food insecurity: Worry: Not on file Inability: Not on file Transportation needs: Medical: Not on file Non-medical: Not on file Tobacco Use Smoking status: Never Smoker Smokeless tobacco: Never Used Substance and Sexual Activity Alcohol use: Not on file Comment: occasional Drug use: Never Sexual activity: Not on file Lifestyle Physical activity: Days per week: Not on file Minutes per session: Not on file Stress: Not on file Relationships Social connections: Talks on phone: Not on file Gets together: Not on file Attends islam service: Not on file Active member of club or organization: Not on file Attends meetings of clubs or organizations: Not on file Relationship status: Not on file Intimate partner violence: Fear of current or ex partner: Not on file Emotionally abused: Not on file Physically abused: Not on file Forced sexual activity: Not on file Other Topics Concern Not on file Social History Narrative Not on file Family History Problem Relation Age of Onset Cancer Paternal Aunt PHYSICAL EXAMINATION: BP 127/78 | Pulse 89 | Resp 16 | Ht 1.626 m (5' 4") | Wt 66.4 kg (146 lb 4.8 oz) | SpO 2 99% | BMI 25.11 kg/m General appearance: Well kept, well nourished, in no acute distress Neck is supple. Lungs are clear. Heart sounds are within normal limits. Abdomen is soft and non-tender, There is no extremity cyanosis or edema. NEUROLOGIC EXAMINATION: MENTAL STATUS: The patient is awake, alert, and oriented to time, place, and person. Spee ch is fluent. Memory, attention, comprehension, and general fund of knowledge are intact. CRANIAL NERVES: Funduscopy revealed distinct disc margins. There are no exudates or hemor rhages noted. Pupils are 3-4 mm, equal and reactive to light and accommodation. Extraocular muscle movements are intact. There are no visual field cuts. There is no nystagmus. There is no facial asymmetry. Facial sensation is intact. Palate elevates symmetrically. Streng th in the trapezius and sternocleidomastoid muscles is normal. Tongue is midline on protrusi on. MOTOR EXAMINATION: Strength is 5/5 throughout except for very mild weakness of the neck fl exors and extensors which may be secondary to pain. Tone is normal. There is tenderness noted over the posterior cervical paraspinal muscles. There is no tenderness on palpation o f the arm and leg muscles. SENSORY EXAMINATION: Intact to light touch and pinprick. DEEP TENDON REFLEXES: 2+ and symmetric. PLANTAR RESPONSES: Downgoing bilaterally GAIT: Gait and station are normal. CEREBELLAR EXAMINATION: There is no dysmetria on nuadkt-ql-[id number] test. IMPRESSION: 1. Elevated muscle enzymes 2. History of fibromyalgia PLAN AND RECOMMENDATIONS: I reviewed the patient's extensive medical records from her PCP as well as from Dr. Campoverde . The patient's pain may be secondary to fibromyalgia but I agree with Dr. Campoverde that a brooklyn carlos needs to be ruled out. I am obtaining repeat muscle enzymes as well as an ESR and CRP today. She will also be scheduled for 4 limb EMG. This is positive, I will refer her for a muscle biopsy. More than 50% of this 45 minute visit was spent on ekvo-vm-jlpd with the patient, reviewing the possible etiology off her symptoms and her treatment plan. Thank you for the opportunity to participate in the care of this patient. Radha Arcos MD 05/11/2019 11:32 AM Electronically signed This note was transcribed using voice recognition software. There may be speech recognitio n errors which escaped detection during review. documented in thi s encounter Plan of Treatment +--------+---------+ + + + | Date | Type | Specialty | Care Team | Description | +--------+---------+ + + + | 12/19/ | Office | Neurology | Radha Arcos | | 2019 | Visit | | MD [facility] [address] | | | | | | [place] | | | | | | [place] [address] | | | | | | [phone] | | | | | | | | +--------+---------+ + + + documented as of this encounter Results EMG-BUE/BLE (09/07/2019 2:00 PM PDT) + + + | Narrative | Performed At | + + + | Radha Pereira | | | MD [place] 09/07/2019 2:28 PMPlease see scanned report. | | | | | + + + + + | Procedure Note | + + | Radha Arcos MD - 09/07/2019 2:00 PM PDT Please see scanned report. | + + Sedimentation Rate (05/11/2019 11:50 AM PST) + +-------+ + + + | Component | Value | Ref Range | Performed | Pathologist | | | | | At | Signature | + +-------+ + + + | Erythrocyte | 15 | 0 - 20 mm/hr | [facility] | | | | | | [facility] | | | [facility] | | | [facility] | | | on Rate | | | LABORATORY | | + +-------+ + + + + + | Specimen | + + | Blood | + + + + + + + | Performing | Address | City/State/Zipcode | Phone Number | | Organization | | | | + + + + + | [facility] | [address] | [place] | [phone] | | HOSP[facility] | | [address] | | + + + + + Lactate Dehydrogenase (05/11/2019 11:50 AM PST) + +-------+ + + + | Component | Value | Ref Range | Performed | Pathologist | | | | | At | Signature | + +-------+ + + + | LDH TOTAL | 131 | 81 - 234 U/L | [facility] | | | | | | [facility] | | | | | | [facility] | | | | | | LABORATORY | | + +-------+ + + + + + | Specimen | + + | Blood | + + + + + + + | Performing | Address | City/State/Zipcode | Phone Number | | Organization | | | | + + + + + | [facility] | [address] | [place] | [phone] | | [facility] | | [address] | | + + + + + Aldolase (05/11/2019 11:50 AM PST) + + + + + + | Component | Value | Ref Range | Performed | Pathologist | | | | | At | Signature | + + + + + + | Aldolase | 3.0Comment: @ Test | <8.2 U/L | REFERENCE | | | | Performed By: [facility] | | [facility] | | | | [facility] | | [place] | | | | Marlo Catherine | | - CLAUDIA | | | | Salvatore Ruiz, Ph.D., | | [place] | | | | Job Developer | | | | | | [address] | | | | | | [place] [address] | | | | | | CORNELL #[id number] | | | | + + + + + + + + | Specimen | + + | Blood | + + + + + + + | Performing | Address | City/State/Zipcode | Phone Number | | Organization | | | | + + + + + | REFERENCE LAB | [address] | [place], [place] | | | [facility] - | | [address] | | | CLAUDIA SHELL | | | | + + + + + C-Reactive Protein (05/11/2019 11:50 AM PST) + +-------+ + + + | Component | Value | Ref Range | Performed | Pathologist | | | | | At | Signature | + +-------+ + + + | C-Reactive | <0.2 | 0.0 - 0.9 mg/dL | [facility] | | | Protein | | | [facility] | | | | | | [facility] | | | | | | LABORATORY | | + +-------+ + + + + + | Specimen | + + | Blood | + + + + + + + | Performing | Address | City/State/Zipcode | Phone Number | | Organization | | | | + + + + + | [facility] | [address] | [place], [place] | [phone] | | HOSP[facility] | | [address] | | + + + + + CK Total (05/11/2019 11:50 AM PST) + +-------+ + + + | Component | Value | Ref Range | Performed | Pathologist | | | | | At | Signature | + +-------+ + + + | CK TOTAL | 123 | 26 - 192 U/L | [facility] | | | | | | [facility] | | | | | | [facility] | | | | | | LABORATORY | | + +-------+ + + + + + | Specimen | + + | Blood | + + + + + + + | Performing | Address | City/State/Zipcode | Phone Number | | Organization | | | | + + + + + | [facility] | [address] | [place] | [phone] | | HOSP[facility] | | [address] | | + + + + + documented in this encounter Visit Diagnoses + + | Diagnosis | + + | Muscle weakness Muscle weakness (generalized) | + + | Fibromyalgia Mylagia and myositis, unspecified | + + documented in this encounter
--- OUTSIDE RECORDS SUMMARY | ~2019-11-30 | XMS | Encounter Summary ---
Demographics + + + | Address | [address] | | [address] | | | [place] [address] | + + + | Home Phone | | + + + | Preferred Language | Unknown | + + + | Marital Status | Unknown | + + + | Catholic Affiliation | Unknown | + + + | Race | Unknown | + + + | Ethnic Group | Unknown | + + + Author + + + | Author | [facility] | | | and [place] | + + + | Organization | [facility] | | | and [...] Team Providers + +------+ + | Care [place] Name | Role | Phone | + +------+ + | Nicole Shin | PCP | | | PA | | | + +------+ + Reason for Visit + +--------+ + | Reason | Onset | Comments | | | Date | | + +--------+ + | Lab Results | 05/16/ | | | | 2020 | | + +--------+ + Encounter Details +--------+ + + + + | Date | Type | Department | Care Team | Description | +--------+ + + + + | 05/16/ | Telephone | [facility] | Niki Souza RN | Lab Results | | 2020 | | [facility] | | | | | | CLINIC [address] | | | | | | [address] [place], | | | | | | [place] [address] | | | | | | [phone] | | | +--------+ + + + + Social History + +-------+ [...] + + documented as of this encounter Miscellaneous Notes Telephone Encounter - Niki Souza RN - 05/16/2019 11:23 AM PSTNotified.Electronically s igned by Niki Souza RN at 05/16/2019 11:23 AM PSTTelephone Encounter - Niki Souza R N - 05/16/2019 11:22 AM PST----- Message from Radha Arcos MD sent at 05/15/2019 3:33 AM PST ----- Please let pt know her aldolase (another muscle enzyme) is normal. documented in this encounter Plan of Treatment +--------+---------+ + + + | Date | Type | Specialty | Care Team | Description | +--------+---------+ + + + | 12/19/ | Office | Neurology | Radha Arcos | | 2019 | Visit | | MD [facility] [address] | | | | | | [place] | | | | | | [place] [address] | | | | | | [phone] | | | | | | | | +--------+---------+ + + + documented as of this encounter Visit Diagnoses Not on filedocumented in this encounter"
--- OUTSIDE RECORDS SUMMARY | ~2019-11-30 | XMS | Encounter Summary ---
Demographics + + + | Address | [address] | [address] | | | [place] [address] | + + + | Home Phone | | + + + | Preferred Language | Unknown | + + + | Marital Status | Unknown | + + + | Gnosticist Affiliation | Unknown | + + + | Race | Unknown | + + + | Ethnic Group | Unknown | + + + Author + + + | Author | [facility] | | | and [place] | + + + | Organization | [facility] | | | and [place] | + + + | Address | Unknown | + + + | Phone | Unavailable | + + + Support + + +---------+ + | Name | Relationship | Address | Phone | + + +---------+ + | Verónica Singleton | ECON | Unknown | | + + +---------+ + | Shaun Rulo | ECON | Unknown | | + + +---------+ + Care Team Providers + +------+ + | Care Gambling Dealer Name | Role | Phone | + +------+ + | Nicole Shin | PCP | | | PA | | | + +------+ + Reason for Visit + + + | Reason | Comments | + + + | Procedure | EMG - BUE / BLE | + + + Encounter Details +--------+ + + + + | Date | Type | Department | Care Team | Description | +--------+ + + + + | 09/06/ | Procedure | [facility] | Radha Arcos | Muscle weakness; | | 2019 | visit | [facility] | MD [facility] [address] | Peripheral | | | | CLIN[address] | [place] | polyneuropathy | | | | [address], | [place] [address] | | | | | [place] [address] | [phone] | | | | | [phone] | | | +--------+ + + + [...] Comments | + + +---------+ + | Yes | 1 Standard drinks | 1.0 | [...] + + + | Blood Pressure | 115/59 | 09/07/2019 1:49 PM | | | | | PDT | | + + + + + | Pulse | 72 | 09/07/2019 1:49 PM | | | | | PDT | | + + + + + | Temperature | 35.8 C (96.5 F) | 09/07/2019 1:49 PM | | | | | PDT | | + + + + + | Respiratory Rate | 18 | 09/07/2019 1:49 PM | | | | | PDT | | + + + + + | Oxygen Saturation | 100% | 09/07/2019 1:49 PM | | | | | PDT | | + + + + + | Inhaled Oxygen | - | - | | | Concentration | | | | + + + + + | Weight | 66.4 kg (146 lb 6.2 | 09/07/2019 1:49 PM | stated | | | oz) | PDT | | + + + + + | Height | 162 cm (5' 3.78") | 09/07/2019 1:49 PM | | | | | PDT | | + + + + + | Body Mass Index | 25.3 | 09/07/2019 1:49 PM | | | | | PDT | | + + + + + documented in this encounter Progress Radha Whitt MD - 09/07/2019 2:00 PM PDTEMG tolerated well. Results explained to patient. She has a mild diffuse demyelinating sensory neuropathy. Additional blood work fo r B12, folate, IEP, SPEP, and cryoglobulins has been requested. She will see her PCP next month for a possible adjustment of her Lyrica. I will see her ba ck in 2 months. doc umented in this encounter Procedure Radha Whitt MD - 09/07/2019 2:00 PM PDTAssociated Order(s): EMGPre-Procedure Diag nose(s): Muscle weaknessPlease see scanned report. documented in thi s encounter Plan of Treatment +--------+---------+ + + + | Date | Type | Specialty | Care Team | Description | +--------+---------+ + + + | 12/19/ | Office | Neurology | Radha Arcos | | 2019 | Visit | | MD [facility] [address] | | | | | | [address], [place] | | | | | | [place] [address] | | | | | | [phone] | | | | | | | | +--------+---------+ + + + + +------+--------+ + + | Name | Type | Priori | Associated Diagnoses | Order Schedule | | | | ty | | | + +------+--------+ + + | Cryoglobulin | Lab | Routin | Peripheral | 1 Occurrences | | | | e | polyneuropathy | starting 09/07/2019 | | | | | | until 09/06/2020 | + +------+--------+ + + documented as of this encounter Procedures + +--------+ + + + | Procedure Name | Priori | Date/Time | Associated Diagnosis | Comments | | | ty | | | | + +--------+ + + + | EMG | Routin | 09/07/2019 | Muscle weakness | Results for this | | | e | 2:00 PM | | procedure are in the | | | | PDT | | results section. | + +--------+ + + + | EMG | Routin | 09/07/2019 | Muscle weakness | Results for this | | | e | 2:00 PM | | procedure are in the | | | | PDT | | results section. | + +--------+ + + + | EMG | Routin | 09/07/2019 | Muscle weakness | Results for this | | | e | 2:00 PM | | procedure are in the | | | | PDT | | results section. | + +--------+ + + + documented in this encounter Results Protein Electrophoresis, Serum (09/07/2019 2:45 PM PDT) + + + + + + | Component | Value | Ref Range | Performed | Pathologist | | | | | At | Signature | + + + + + + | ELP Total | 7.0Comment: | 6.1 - 8.1 g/dL | REFERENCE | | | Protein | | | [facility] | | | | | [facility] | | | | | | - [place] | | | | | | [place] | | + + + + + + | ELP Albumin | 3.9Comment: | 3.8 - 4.8 g/dL | REFERENCE | | | | | | [facility] | | | | | | [facility] | | | | | | - [place] | | | | | | [place] | | + + + + + + | Alpha-1-Tamy | 0.3Comment: | 0.2 - 0.3 g/dL | REFERENCE | | | bulin | | | [facility] | | | | | [facility] | | | | | | - [place] | | | | | | [place] | | + + + + + + | Alpha-2-Tamy | 0.9Comment: | 0.5 - 0.9 g/dL | REFERENCE | | | bulin | | | [facility] | | | | | | [facility] | | | | | | - [place] | | | | | | [place] | | + + + + + + | Beta 1 | 0.5Comment: | 0.4 - 0.6 g/dL | REFERENCE | | | Globulin | | | [facility] | | | | | | [facility] | | | | | | - [place] | | | | | | [place] | | + + + + + + | BETA 2 | 0.4Comment: | 0.2 - 0.5 g/dL | REFERENCE | | | GLOBULIN | | | [facility] | | | | | | [facility] | | | | | | - [place] | | | | | | [place] | | + + + + + + | Gamma | 1.0Comment: | 0.8 - 1.7 g/dL | REFERENCE | | | Globulin | | | [facility] | | | | | | [facility] | | | | | | - [place] | | | | | | [place] | | + + + + + + | SPEP | Normal Electrophoretic | | REFERENCE | | | Interpretat | Pattern.Comment: | | [facility] | | | ion | Test(s) performed at: | | DIAGNOSTICS | | | | [facility] | | - [place] | | | | [facility] | | [place] | | | | Becky [place], | | | | | | Joseph, Ph.D., [place], | | | | | | [place] | | | | | | [address] [facility][1] | | | | | | [place] | | | | | | [place] [address] | | | | | | [place] #[id number] | | | | + + + + + + + + | Specimen | + + | Blood | + + + + + + + | Performing | Address | City/State/Zipcode | Phone Number | | Organization | | | | + + + + + | REFERENCE LAB | [address] | [place], [place] | | | [facility] - | | [address] | | | [place] | | | | + + + + + Immunoglobulin, Panel, IgG and IgM and IgA (09/07/2019 2:45 PM PDT) + + + + + + | Component | Value | Ref Range | Performed | Pathologist | | | | | At | Signature | + + + + + + | Immunoglobu | 147 | 47 - 310 mg/dL | REFERENCE | | | beatrice IgA | | | [facility] | | | | | | [facility] | | | | | | - [place] | | | | | | [place] | | + + + + + + | Immunoglobu | 1060 | 600 - 1640 | REFERENCE | | | beatrice IgG | | mg/dL | [facility] | | | | | | [facility] | | | | | | - [place] | | | | | | [place] | | + + + + + + | Immunoglobu | 167Comment: @ Test | 50 - 300 mg/dL | REFERENCE | | | beatrice IgM | Performed By: [facility] | | [facility] | | | | [facility] | | [place] | | | | Marlo Catherine | | - [place] | | | | Salvatore Ruiz, Ph.D., | | [place] | | | | [place] | | | | | | [address] | | | | | | [place] [address] | | | | | | [place] #[id number] | | | | + + + + + + + + | Specimen | + + | Blood | + + + + + + + | Performing | Address | City/State/Zipcode | Phone Number | | Organization | | | | + + + + + | REFERENCE LAB | [address] | [place], [place] | | | [facility] - | | [address] | | | [place] | | | | + + + + + Vitamin B-12 09/07/2019 2:45 PM PDT) + +-------+ + + + | Component | Value | Ref Range | Performed | Pathologist | | | | | At | Signature | + +-------+ + + + | VITAMIN | 387 | 211 - 911 pg/mL | [place] | | | B-12 | | | [place] | | | [...] + + | [facility] | [address] | [place] | [phone] | | HOSPITAL [facility] | | [address] | | + + + + + Folate (09/07/2019 2:45 PM PDT) + +-------+ + + + | Component | Value | Ref Range | Performed | Pathologist | | | | | At | Signature | + +-------+ + + + | FOLATE | 12.4 | >=5.4 ng/mL | [place] | | | | | | [facility] | | | | | | HOSPITAL [...] + + | [facility] | [address] | [place] | [phone] | | HOSPITAL LAB[facility] | | [address] | | + + + + + EMG-STEFFI (09/07/2019 2:00 PM PDT) + + + | Narrative | Performed At | + + + | Radha Pereira | | | MD Josselyn 09/07/2019 2:28 PMPlease see scanned report. | | | | | + + + + + | Procedure Note | + + | Radha Arcos MD - 09/07/2019 2:00 PM PDT Please see scanned report. | + + documented in this encounter Visit Diagnoses + + | Diagnosis | + + | Muscle weakness Muscle weakness (generalized) | + + | Peripheral polyneuropathy Unspecified hereditary and idiopathic peripheral neuropathy | + + documented in this encounter
--- OUTSIDE RECORDS SUMMARY | ~2019-11-30 | XMS | Encounter Summary ---
Demographics + + + | Address | [address] | [address] | | | [place] [address] | + + + | Home Phone | | + + + | Preferred Language | Unknown | + + + | Marital Status | Unknown | + + + | Pentecostalism Affiliation | Unknown | + + + | Race | Unknown | + + + | Ethnic Group | Unknown | + + + Author + + + | Author | [facility] | | | and [place] | + + + | Organization | [facility] | | | and [place] | + + + | Address | Unknown | + + + | Phone | Unavailable | + + + Support + + +---------+ + | Name | Relationship | Address | Phone | + + +---------+ + | Verónica Singleton | ECON | Unknown | | + + +---------+ + | Shaun Areli | ECON | Unknown | | + + +---------+ + Care Team Providers + +------+ + | Care Data Technical Lead Name | Role | Phone | + +------+ + | Nicole Shin | PCP | | | PA | | | + +------+ + Reason for Visit + +--------+ + | Reason | Onset | Comments | | | Date | | + +--------+ + | Request For Medical | 07/11/ | | | Records | 2020 | | + +--------+ + Encounter Details +--------+ + + + + | Date | Type | Department | Care Team | Description | +--------+ + + + + | 07/11/ | Telephone | [facility] | Radha Arcos | Request For Medical | | 2020 | | HOSPITAL [facility] | MD [facility] [address] | Records | | | | CLINIC [address] | [place] | | | | | [address], | [place] [address] | | | | | [place] [address] | [phone] | | | | | [phone] | | | +--------+ + + + [...] this encounter Miscellaneous Notes Telephone Encounter - Elizabet Veliz - 07/12/2019 2:08 PM PDTRecieved fax request from: [facility] Requesting chart notes on pt. I faxed the notes from the consult in April. Pt was referred by them I will send the request to the medical records dept in [facility] for further notes documented in thi s encounter Plan of Treatment +--------+---------+ + + + | Date | Type | Specialty | Care Team | Description | +--------+---------+ + + + | 12/19/ | Office | Neurology | Radha Arcos | | | 2019 | Visit | | MD [facility] [address] | | | | | | [place] | | | | | | [place] [address] | | | | | | [phone] | | | | | | | | +--------+---------+ + + + documented as of this encounter Visit Diagnoses Not on filedocumented in this encounter"
--- OUTSIDE RECORDS SUMMARY | ~2019-11-30 | XMS | Clinical Summary ---
Demographics + + + | Address | [address] | [address] | | | [place] [address] | + + + | Home Phone | | + + + | Preferred Language | Unknown | + + + | Marital Status | Unknown | + + + | Hindu Affiliation | Unknown | + + + | Race | Unknown | + + + | Ethnic Group | Unknown | + + + Author + + + | Author | [facility] | | | and [place] | + + + | Organization | [facility] | | [...] Team Providers + +------+ + | Care Manager E Learning Name | Role | Phone | + [...] | +--------+ + + + + | 11/20/ | Telephone | Neurology | Radha Arcos | Other | 2019 | | | [facility] | | +--------+ + + + + | 09/13/ | Telephone | Neurology | Niki Souza RN | Lab Results | | 2019 | | | | | +--------+ + + + + | 09/10/ | Telephone | Neurology | Radha Arcos | Lab Results | 2019 | | | MD [facility] | | +--------+ + + + + | 09/06/ | Procedure | Neurology | Radha Arcos | Muscle weakness; | 2019 | visit | | MD [...] | | | | | [place] [address] | | | | | | [phone] | | | | | | | [...] + + | [facility] | [address] | [place], [place] | [phone] | | HOSPITAL LAB[facility]ORY | | [address] | | + + + + + [...] | | | | | | - [place] | | | | | | [place] | | + + + + + + | Immunoglobu | 1060 | 600 - 1640 | REFERENCE | | | beatrice IgG | | mg/dL | [facility] | | | | | | [facility] | | | | | | - [place] | | | | | | [place] | | + + + + + + | Immunoglobu | 167Comment: @ Test | 50 - 300 mg/dL | REFERENCE | | | beatrice IgM | Performed By: [facility] | | [facility] | | | | [facility] | | DIAGNO[facility] | | | | [place] | | - [place] | | | | Salvatore Ruiz, Ph.D., | | [place] | | | | Entry Operator | | | | | | [address] [address] [facility] | | | | | | [place] [address] | | | | | | CLIA #[id number] | | | | + + + + + + + + | Specimen | + + | Blood | + + + + + + + | Performing | Address | City/State/Zipcode | Phone Number | | Organization | | | | + + + + + | REFERENCE LAB | [address] | [place], [place] | | | [facility] - | | [address] | | | [place] | | | | + + + [...] [place] | | | | | | [place] | | + + + + + + | ELP Albumin | 3.9Comment: | 3.8 - 4.8 g/dL | REFERENCE | | | | | | [facility] | | | | | | [facility] | | | | | | - [place] | | | | | | [place] | | + + + + + + | Alpha-1-Tamy | 0.3Comment: | 0.2 - 0.3 g/dL | REFERENCE | | | bulin | | | [facility] | | | | | | [facility] | | | | | | - [place] | | | | | | [place] | | + + + + + + | Alpha-2-Tamy | 0.9Comment: | 0.5 - 0.9 g/dL | REFERENCE | | | bulin | | | [facility] | | | | | | [facility] | | | | | | - [place] | | | | | | [place] | | + + + + + + | Beta 1 | 0.5Comment: | 0.4 - 0.6 g/dL | REFERENCE | | | Globulin | | | [facility] | | | | | | [facility] | | | | | | - [place] | | | | | | [place] | | + + + + + + | BETA 2 | 0.4Comment: | 0.2 - 0.5 g/dL | REFERENCE | | | GLOBULIN | | | [facility] | | | | | | [facility] | | | | | | - [place] | | | | | | [place] | | + + + + + + | Gamma | 1.0Comment: | 0.8 - 1.7 g/dL | REFERENCE | | | Globulin | | | [facility] | | | | | | [facility] | | | | | | - [place] | | | | | | [place] | | + + + + + + | SPEP | Normal Electrophoretic | | REFERENCE | | | Interpretat | Pattern.Comment: | | [facility] | | | ion | Test(s) performed at: | | DIAGNOSTICS | | | | [facility] | | - [place] | | | | [facility] | | [place] | | | | Becky [place], | | | | | | Joseph, Ph.D., [place], | | | | | | Entry Operator | | | | | | [address] | | | | | | [place] | | | | | | [place] [address] | | | | | | [place] #[id number] | | | | + + + + + + + + | Specimen | + + | Blood | + + + + + + + | Performing | Address | City/State/Zipcode | Phone Number | | Organization | | | | + + + + + | REFERENCE LAB | [address] | [place], [place] | | | [facility] - | | [address] | | | [place] | | | | + + + [...] + + | [facility] | [address] | [place] | [phone] | | HOSPITAL [facility] | | [address] | | + + + + + LUANA-LIANET/IRENA (09/07/2019 2:00 PM PDT) + + + [...] +---------+--------+ | [employer] | [facility] | [id number] | 04/18/19 | [phone] | | PPO | | ADMIN | BCBS | 2 | 19-Pre | 3 | | | | | PPO | | sent | | | | + +--------+ +--------+ +---------+--------+ | [employer] | [facility] | [id number] | 04/18/19 | [phone] | | PPO | | ADMIN | BCBS | 2 | 19-Pre | 3 | | | | | PPO | | sent | | | | + +--------+ +--------+ +---------+--------+ | [employer] | MODA | [id number] | | [phone] | | Medica | | MEDICAID HMO | HEALTH | | 019-Pr | 1 | | id | | | MDCD | | esent | | | | | | [place] | | | | | | + +--------+ +--------+ +---------+--------+ | [employer] | MODA | [id number] | | [phone] | | Medica | | MEDICAID HMO [...] [birth year] | [address] | | | al/Fam | | 1985 | [phone] | [address] [place], [place] | | | [place] | | | 4 (Home) | [phone] | + +--------+ +--------+ + + | Annie Remy | Person | Self | [birth year] | [address] | | | al/Fam | | 1985 | [phone] [place], [place] | | | [place] | | | 4 (Home) | [address] | + +--------+ +--------+ + + Advance Directives + + + + + | Type | Date Recorded | Patient | Explanation | | | | Health Manager | | + + + + + | Power of | | | | | Powerplant Operator | | | | + + + + + | Advance | | | | | Directive | | | | + + + + +
--- OUTSIDE RECORDS SUMMARY | ~2019-11-30 | XMS | Encounter Summary ---
Demographics + + + | Address | [address] | [address] | | | [place] [address] | + + + | Home Phone | | + + + | Preferred Language | Unknown | + + + | Marital Status | Unknown | + + + | Religion Affiliation | Unknown | + + + | Race | Unknown | + + + | Ethnic Group | Unknown | + + + Author + + + | Author | [facility] | | | and [place] | + + + | Organization | [facility] | | | and [place] | + + + | Address | Unknown | + + + | Phone | Unavailable | + + + Support + + +---------+ + | Name | Relationship | Address | Phone | + + +---------+ + | Verónica Singleton | ECON | Unknown | | + + +---------+ + | Shaun Sinlgeton | ECON | Unknown | | + + +---------+ + Care Team Providers + +------+ + | Care Metal Painter Name | Role | Phone | + +------+ + | Nicole Shin | PCP | | | PA | | | + +------+ + Reason for Visit + +--------+ + | Reason | Onset | Comments | | | Date | | + +--------+ + | Lab Results | 05/11/ | | | | 2019 | | + +--------+ + Encounter Details +--------+ + + + + | Date | Type | Department | Care Team | Description | +--------+ + + + + | 05/11/ | Telephone | [facility] | Niki Souza RN | Lab Results | | 2020 | | [facility] | | | | | | CLINIC [address] | | | | | | [address] [place], | | | | | | [place] [address] | | | | | | [phone] | | | +--------+ + + + [...] Telephone Encounter - Niki Souza RN - 05/11/2019 2:27 PM PSTNotified.Electronically s igned by Niki Souza RN at 05/11/2019 2:27 PM PSTTelephone Encounter - Niki Souza R N - 05/11/2019 2:27 PM PST----- Message from Radha Arcos MD sent at 05/11/2019 1:50 PM PST ----- Please let patient know that some of her labs came back today and they are normal.Bryan mckinnon signed by Niki Souza RN at 05/11/2019 2:27 PM PSTdocumented in this encounter Plan of Treatment +--------+---------+ + + + | Date | Type | Specialty | Care Team | Description | +--------+---------+ + + + | 12/19/ | Office | Neurology | Radha Arcos | | 2019 | Visit | | [facility] [address] | | | | | | [place] | | | | | | [place] [address] | | | | | | [phone] | | | | | | | | +--------+---------+ + + + documented as of this encounter Visit Diagnoses Not on filedocumented in this encounter"
--- OUTSIDE RECORDS SUMMARY | ~2019-11-30 | XMS | Encounter Summary ---
Demographics + + + | Address | [address] | [address] | | | [place] [address] | + + + | Home Phone | | + + + | Preferred Language | Unknown | + + + | Marital Status | Unknown | + + + | Taoism Affiliation | Unknown | + + + | Race | Unknown | + + + | Ethnic Group | Unknown | + + + Author + + + | Author | [facility] | | | and [place] | + + + | Organization | [facility] | | | and [...] Team Providers + +------+ + | Care Sed Middle School Teacher Name | Role | Phone | + [...] Lab Results | | 2020 | | [facility] | | | | | | CLINIC [address] | | | | | | [address] [place], | | | | | | [place] [address] | | | | | | [phone] | | | +--------+ + + + [...] | | | | | [place] [address] | | | | | | [phone] | | | | | | | | +--------+---------+ + + + documented as of this encounter Visit Diagnoses Not on filedocumented in this encounter"
--- OUTSIDE RECORDS SUMMARY | ~2019-11-30 | XMS | Encounter Summary ---
Demographics + + + | Address | [address] | [address] | | | [place] [address] | + + + | Home Phone | | + + + | Preferred Language | Unknown | + + + | Marital Status | Unknown | + + + | Taoism Affiliation | Unknown | + + + | Race | Unknown | + + + | Ethnic Group | Unknown | + + + Author + + + | Author | [facility] | | | and [place] | + + + | Organization | [facility] | | | [...] Team Providers + +------+ + | Care Roof Service Technician Name | Role | Phone | [...] Lab Results | | 2020 | | [facility] | MD [facility] [address] | | | | | CLINIC [address] | [place] | | | | | [address], | [place] [address] | | | | | [place] [address] | [phone] | | | | | [phone] | | | +--------+ + + + [...] encounter Miscellaneous Notes Telephone Encounter - Niki Sozua RN - 09/11/2019 8:06 AM PDTNotified, verbalized unde rstanding. Order for Cryoglobulin faxed to [facility] lab in [place]. elephone Encounter - Niki Souza RN - [...] would like her lab orders faxed to [facility] in [place]. documented in this enco unter Plan of [...] | | | | | [place] [address] | | | | | | [phone] | | | | | | | | +--------+---------+ + + + documented as of this encounter Visit Diagnoses Not on filedocumented in this encounter"
--- OUTSIDE RECORDS SUMMARY | ~2019-11-30 | XMS | Encounter Summary ---
Demographics + + + | Address | [address] | [address] | | | [place] [address] | + + + | Home Phone | | + + + | Preferred Language | Unknown | + + + | Marital Status | Unknown | + + + | Yarsani Affiliation | Unknown | + + + | Race | Unknown | + + + | Ethnic Group | Unknown | + + + Author + + + | Author | [facility] | | | and [place] | + + + | Organization | [facility] | | | [...] Team Providers + +------+ + | Care Seed Collector Name | Role | Phone | + +------+ + | Nicole Shin | PCP | | | PA | | | + +------+ + Reason for Visit +--------+--------+ + | Reason | Onset | Comments | | | Date | | +--------+--------+ + | Other | 11/20/ | | | | 2020 | | +--------+--------+ + Encounter Details +--------+ + + + + | Date | Type | Department | Care Team | Description | +--------+ + + + + | 11/20/ | Telephone | [facility] | Radha Arcos | Other | | 2020 | | HOSPITAL NEUROLOGY | MD [facility] [address] | | | | | CLIN[address] | [place] | | | | | [address], | [place] [address] | | | | | [place] [address] | [phone] | | | | | [phone] | | | +--------+ + + + [...] Telephone Encounter - Niki Souza RN - 11/21/2019 8:52 AM PDTReviewed with patient pamela t an order for a MRI has not been placed at this time. Dr. Arcos will need to see her at h er next appointment and document the indications for ordering a MRI. Patient verbalized und erstanding. elephone En counter - Vi Cedeno - 11/21/2019 8:23 AM PDTPatient stated that she was supposed t o have an MRI referral put in and did not think it got done. She is scheduled in Dec and wa nted to know if she could get a referral for her MRI sent to [facility] so she can have it before her appointment. Please advise documented in this encounter Plan of Treatment +--------+---------+ + + + | Date | Type | Specialty | Care Team | Description | +--------+---------+ + + + | 12/19/ | Office | Neurology | Radha Arcos | | 2019 | Visit | | MD [facility] [address] | | | | | | [place] | | | | | | [place], [place] [address] | | | | | | [phone] | | | | | | | | +--------+---------+ + + + documented as of this encounter Visit Diagnoses Not on filedocumented in this encounter"
[~2019-11-30 11:29] MED LIST changes: +EPIPEN 2-P0.3 MG/0.3 IM; +MIRTAZAPINE15 MG PO; +NEXPLANON68 MG SUB-Q; +PAROXETINE HCL20 MG PO; +PREGABALIN150 MG PO; +VITAMIN D31250 MC1 PO
--- OUTSIDE RECORDS SUMMARY | 2019-11-30 11:32 | XMS ---
PreManage Notification: GET EUGENE Security Machine Straw Hat Presser Events No recent Security Events currently on file CRITERIA MET - [facility] - 2 Visits in 30 Days CARE PROVIDERS RICH MURRAY Physician Fight Manager 12/05/2017-Current PHONE: [phone] Barbara has no Care Guidelines for this patient. Sonya VISIT COUNT (12 MO.) 5 [facility] TOTAL 5 NOTE: Visits indicate total known visits. ED/UCC VISIT TRACKING (12 MO.) 11/30/2019 11:30 [facility] [place] TYPE: Emergency COMPLAINT: - ABD PAIN 11/15/2019 18:51 [facility] [place] TYPE: Emergency COMPLAINT: - HEADACHE,SCRATCHY THROAT,BODY ACHES DIAGNOSES: - Other half-way (current) drug therapy - Toxic effect of venom of bees, accidental (unintentional), in - Hypokalemia - Allergy status to penicillin 05/17/2019 17:17 [facility] [place] TYPE: Emergency COMPLAINT: - UPPER ABD PAIN, BACK/NECK PAIN DIAGNOSES: - Unspecified abdominal pain - Allergy status to penicillin - Allergy status to other drugs, medicaments and biological sub - Right upper quadrant pain - Other half-way (current) drug therapy 01/25/2019 12:08 [facility] [place] TYPE: Emergency COMPLAINT: - ABD PAIN DIAGNOSES: - Other half-way (current) drug therapy - Allergy status to penicillin - Allergy status to other drugs, medicaments and biological sub - Upper abdominal pain, unspecified - retirement (current) use of opiate analgesic - Acute gastritis without bleeding 01/20/2019 09:37 [facility] [place] TYPE: Emergency COMPLAINT: - ABD PAIN DIAGNOSES: - Epigastric pain - Allergy status to other drugs, medicaments and biological sub - 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
[2019-11-30] MEDS ORDERED: PRILOSEC OTC20 MG PO (16:07)
== END 2019-11-30 16:27 | disposition home or self-care (01) ==
LOC: ED 11:29
DX: K29.70 Gastritis, unspecified, without bleeding (principal); Z88.0 Allergy status to penicillin; Z88.8 Allergy status to other drugs, medicaments and biological substances; Z79.899 Other long term (current) drug therapy
CPT/HCPCS: 74177; 80053; 81001; 83690; 84703; 85025; 96375; 99284-25; J1885; J2405; Q9967

== ENCOUNTER 2020-02-08 07:50 | Day surgery (SDC) | payer OTHER ==
[~2020-02-08] VITALS: Ht 162.6 cm; Wt 67.2 kg
[~2020-02-08 07:50] MED LIST changes: +BELBUCA300 MCG; +LYRICA150 MG PO; +PAXIL30 MG PO; +PRILOSEC OTC20 MG PO; +VITAMIN B-121000 MC4 SUB-Q
--- NOTE | 2020-02-08 10:59 | NUR ---
02/08/20 1059 Olga Vicente 1052 PATIENT ARRIVES TO PACU ASLEEP. OPENS EYES WITH VERBAL STIMULI. RESP EVEN AND UNLABORED. 1055 PATIENT TALKING CONFUSED, UNABLE TO REDIRECT. ASSURED PATIENT SHE WAS SAFE AND HER PROCEDURE WAS COMPLETE. PATIENT HYPERVENTILATING. ENCOUARGED PATIENT TO SLOW HER BREATHING. 1059 PATIENT CONTINUES TO ACT CONFUSED. REORIENTED TO PACU. REASSURED PATIENT THE MEDICINE SHE HAS RECEIVED SHOULD BE WEARING OFF. ENCOURAGED PATIENT TO SLOW BREATHING.
--- NOTE | 2020-02-11 13:06 | OR ---
[facility] [address], [place] [address] Signed DATE OF OPERATION: 02/08/2020 SURGEON: Kecia Noel MD PREOPERATIVE DIAGNOSES: 1. Epigastric abdominal pain. 2. Gastric bypass surgery (2013). 3. Iron-deficiency anemia. POSTOPERATIVE DIAGNOSES: 1. Mild gastritis. 2. Small internal anal skin tags. PROCEDURES: 1. Esophagogastroduodenoscopy with CLOtest and biopsies of the proximal Demario limb and gastric pouch. 2. Colonoscopy with random cold biopsies. ESTIMATED BLOOD LOSS: None. INDICATIONS: Get is a 34-year-old female, who underwent gastric bypass surgery back in 2013. She told me she was over 300 pounds clear down to 147 pounds, she is now right around 160 pounds. She moved up from [place] come back to [place] with her three children; however, she has been having pain in the epigastric area and seems to be getting worse. In fact, it has made her cut back her food. She started to lose weight again. She had an upper endoscopy back in March of 2019, it was not particularly concerning. She did use a significant amount of Versed and fentanyl just for that upper endoscopy. In addition, we thought we might have to use Xanax to help her come to the hospital before the procedure. She is now requiring IV iron therapy. 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 She was hoping to do her colonoscopy sooner, but with the COVID virus, she wanted to wait and see if that would pass. At this point, she has come back to the office and has requested both upper and lower endoscopy per herself, her primary care provider, and her clerical adjuster. In the office, I gave her pamphlets on both upper and lower endoscopy. We have reviewed the nature of the two tests along with the risks including, but not limited to gas bloating, crampy abdominal pain, bleeding, perforation requiring surgery, and missed diagnosis. In addition, we asked an anesthesia provider help with increased monitoring sedation with propofol. She had expressed understanding Electronically Signed By: KECIA NOEL MD 02/08/20 1221 Electronically Signed By: KECIA NOEL MD 02/11/20 1611 PATIENT NAME: GET EUGENE OPERATIVE REPORT DATE OF : 81 REPORT #: [id number] PHYSICIAN: KECIA NOEL MD PCP: HASMUKH OCONNELL MD REPORT IS CONFIDENTIAL AND NOT TO BE RELEASED WITHOUT AUTHORIZATION [facility] [address], [place] [address] Signed and wished to proceed. DESCRIPTION OF PROCEDURE: Get was taken into our endoscopy suite and placed in the supine semi-recumbent position. The posterior oropharynx was anesthetized with lidocaine spray. A bite block was utilized for the case. She was given IV sedation with propofol per our nurse [employer] systems administrator. The adult gastroscope was introduced, and she had to be given additional propofol until we were able to finally pass the scope through the posterior oropharynx and readily out into the gastric pouch. We then passed the scope down the Demario limb as far as the scope would reach. The Demario limb appeared quite healthy. The scope was withdrawn. The very proximal portion of the Demario limb near the anastomosis showed some mild inflammatory changes. No evidence of any acute or chronic ulceration. No obvious stricture at the anastomosis. We went and took a biopsy of the proximal Demario limb. We then took a biopsy of the other side anastomosis on the gastric pouch side. Additional biopsy came out the gastric pouch for H pylori. No obvious hiatal hernia. The GE junction was unremarkable. The distal, middle, and upper esophagus were unremarkable. The gas had been suctioned out and the gastroscope removed. Get had tolerated the upper endoscopy quite well. Get was rotated into the left lateral decubitus position. She was maintained on IV sedation with the propofol per nurse [employer] systems administrator. A digital rectal exam was performed and this was unremarkable. The adult colonoscope was introduced and advanced under direct visualization of camera. Up around 40-50 cm, we found the area that was kinked, and so we had to rotate her into the supine position, which relieved the kink and the scope around quite nicely into the cecum itself. Her prep was excellent. We could easily see the appendiceal orifice and the ileocecal valve. The scope was not turned up into the terminal ileum. The scope was slowly withdrawn. We took a couple of random biopsies for pathologic review. Otherwise, no polyps, no diverticulosis, no inflammatory changes. The rectum itself was unremarkable. Upon retroflexion of the scope, she has some very small internal anal skin tags. After this, the gas was suctioned out. The colonoscope was removed. Get tolerated the procedure quite well. RECOMMENDATIONS: I will see Get back in my office in 7 to 14 days to review her results. Kecia Noel MD Electronically Signed By: KECIA NOEL MD 02/08/20 1221 Electronically Signed By: KECIA NOEL MD 02/11/20 1611 PATIENT NAME: GET EUGENE OPERATIVE REPORT DATE OF : 81 REPORT #: [id number] PHYSICIAN: KECIA NOEL MD PCP: HASMUKH OCONNELL MD REPORT IS CONFIDENTIAL AND NOT TO BE RELEASED WITHOUT AUTHORIZATION [facility] [address] [place] [facility] [place], [place] [address] Signed ALB/MODL /[id number] Copies: ~ Electronically Signed By: KECIA NOEL MD 02/08/20 1221 Electronically Signed By: KECIA NOEL MD 02/11/20 1611 PATIENT NAME: GET EUGENE OPERATIVE REPORT DATE OF : 81 REPORT #: [id number] PHYSICIAN: KECIA NOEL MD PCP: HASMUKH OCONNELL MD REPORT IS CONFIDENTIAL AND NOT TO BE RELEASED WITHOUT AUTHORIZATION
--- NOTE | 2020-02-11 14:08 | PATH ---
[facility] [address] [place], [place] [address] Signed SPECIMEN(S): A SMALL BOWEL SPECIMEN(S): B STOMACH BIOPSY SPECIMEN(S): C COLON BIOPSY SPECIMEN SOURCE: A. SMALL BOWEL B. STOMACH BIOPSY C. COLON BIOPSY CLINICAL HISTORY: Anemia, gastric bypass, epigastric pain. Postop: Mild gastritis. MICROSCOPIC DESCRIPTION: Histologic sections of all submitted blocks are examined by light microscopy. These findings, together with the gross examination, support the pathologic diagnosis. FINAL PATHOLOGIC DIAGNOSIS: A. Small bowel, biopsy: - Benign small bowel type mucosa with villous effacement. - Negative for significantly increased epithelial inflammation. B. Stomach, biopsy: - Benign gastric type mucosa with focal slight chronic inflammation. - Negative for evidence of Helicobacter organisms on routine HE stained sections. C. Colon, biopsy: - Benign colonic mucosa, negative for specific diagnostic abnormality. JVR:[id number] GROSS DESCRIPTION: Three specimens are received in three containers, labeled "LD." A. The specimen, labeled "LD," and designated on the requisition "small bowel biopsy," is received in formalin and consists of two fragments of pink-lester tissue (0.5 x 0.2 x 0.1 cm in aggregate). The specimen is submitted entirely in cassette (A1). B. The specimen, labeled "LD," and designated on the requisition "stomach biopsy," is received in formalin and consists of one fragment of pink-lester tissue (0.3 x 0.3 x 0.3 cm). The specimen is submitted entirely in cassette (B1). C. The specimen, labeled "LD," and designated on the requisition "colon biopsy," is received in formalin and consists of two fragments of pink-lester tissue (0.6 x 0.2 x 0.2 cm in aggregate). The PATIENT NAME: GET EUGENE PATHOLOGY DATE OF : 81 REPORT #: [id number] PHYSICIAN: RAVI PATHOLOGY PCP: HASMUKH OCONNELL MD REPORT IS CONFIDENTIAL AND NOT TO BE RELEASED WITHOUT AUTHORIZATION [facility] [address] [place], [place] [address] Signed specimen is submitted entirely in cassette (C1). AC (under the direct supervision of a pathologist) The Gross Description was prepared using a voice recognition system. The report was reviewed for accuracy; however, sound-alike word errors, addition and/or deletions may occur. If there is any question about this report, please contact Client Services. PERFORMING LABORATORY: The technical component was performed by [facility], [address] [place] [address] (Separator Operator: Sara Kerr MD; CLIA# [id number]). Professional interpretation [place] [address] (Separator Operator: Rashad Vallejo M.D.). Diagnostician: Rashad Vallejo MD Pathologist Electronically Signed 02/11/2020 Copies: ~ PATIENT NAME: GET EUGENE PATHOLOGY DATE OF : 81 REPORT #: [id number] PHYSICIAN: RAVI BRAVO PCP: HASMUKH OCONNELL MD REPORT IS CONFIDENTIAL AND NOT TO BE RELEASED WITHOUT AUTHORIZATION
== END 2020-02-08 11:35 | disposition home or self-care (01) ==
LOC: OPS 07:50 → DS 07:50 → OPS 08:15
PROVIDERS: ATTEND Colon & Rectal Surgery
PROC: 0DB88ZX Excision of Small Intestine, Via Natural or Artificial Opening Endoscopic, Diagnostic (ICD-10-PCS; 2020-02-08)
PROC: 0DBE8ZX Excision of Large Intestine, Via Natural or Artificial Opening Endoscopic, Diagnostic (ICD-10-PCS; principal; 2020-02-08 09:15)
PROC: 0DB78ZX Excision of Stomach, Pylorus, Via Natural or Artificial Opening Endoscopic, Diagnostic (ICD-10-PCS; 2020-02-08 09:15)
DX: K64.8 Other hemorrhoids (principal); K64.4 Residual hemorrhoidal skin tags; D50.9 Iron deficiency anemia, unspecified; K29.50 Unspecified chronic gastritis without bleeding; E55.9 Vitamin D deficiency, unspecified; F32.9 Major depressive disorder, single episode, unspecified; F43.10 Post-traumatic stress disorder, unspecified; G43.909 Migraine, unspecified, not intractable, without status migrainosus; F41.9 Anxiety disorder, unspecified; Z98.84 Bariatric surgery status; Z79.899 Other long term (current) drug therapy
CPT/HCPCS: 86677; J2001; J2704; J7121